=== PATIENT | female | born 1930 | race Caucasian/White ===

== ENCOUNTER 2019-04-22 05:46 | Inpatient (IN) ==
[2019-04-22 06:58] LABS: Basophils # (Auto) 0 K/mcL (0.0-0.3); Basophils % (Auto) 0.4 % (0.0-2.0); Eosinophils # (Auto) 0.7 K/mcL (0.0-0.7); Eosinophils % (Auto) 11.2 % (0.0-7.0); Hematocrit 29.2 % (36.0-48.0); Hemoglobin 9.4 g/dL (12.0-15.0); Lymphocytes # (Auto) 0.6 K/mcL (1.5-4.8); Lymphocytes % (Auto) 10.5 % (15.5-49.0); Mean Cell Volume 96.2 fL (80.0-100.0); Mean Corpuscular HGB Conc 32.2 g/dL (31.0-36.0); Mean Platelet Volume 7.4 fL (7.4-10.4); Monocytes # (Auto) 0.5 K/mcL (0.1-0.9); Monocytes % (Auto) 8.9 % (1.0-12.0); Platelet Count 182 K/mcL (140-440); RBC 3.03 M/mcL (4.00-5.20); Red Cell Distribution Width 13.2 % (11.5-14.5); WBC 6.2 K/mcL (4.5-11.0)
--- NOTE | 2019-04-22 07:20 | Emergency Department Note ---
SOB HPI - General Chief Complaint: Shortness of Breath/Dyspnea Stated Complaint: shortness of breathe Time Seen by Provider: 04/22/19 07:14 Mode of arrival: EMS Limitations: altered mental status, physical limitation - History of Present Illness This patient lives at [facility] and is normally on 2 L of oxygen but over the last day or so her needs her oxygen have increased with decreasing his O2 saturations. Hard to get any other symptoms from her. - Related Data Home Medications Medication Instructions Recorded Confirmed flaxseed 1,000 mg capsule See Dose Instructions .ROUTE 07/09/15 04/22/19 .MEDSUPPLY coenzyme Q10 100 mg capsule 200 mg PO QDAY cap 08/13/15 04/22/19 cranberry extract 500 mg capsule 500 mg PO QAM cap 08/13/15 04/22/19 ascorbic acid (vitamin C) 500 mg 1,000 mg PO BID tab 05/25/16 04/22/19 tablet vitamin E mixed 400 unit capsule 400 unit PO BID cap 09/28/17 04/22/19 fexofenadine 180 mg tablet 180 mg PO QDAY 06/08/18 04/22/19 cinnamon bark 500 mg capsule See Dose Instructions .ROUTE 01/03/19 04/22/19 .MEDSUPPLY cyanocobalamin (vit B-12) 1,000 1,000 mcg PO QDAY tab 01/03/19 04/22/19 mcg tablet gabapentin 300 mg capsule 300 mg PO TID 01/03/19 04/22/19 mineral oil enema 118 ml [place] ONCE PRN 01/03/19 04/22/19 venlafaxine ER 75 mg 37.5 mg PO QDAY 01/03/19 04/22/19 capsule,extended release 24 hr furosemide 20 mg tablet 40 mg PO BID tab 02/20/19 04/22/19 levothyroxine 88 mcg tablet 88 mcg PO QDAY 02/20/19 04/22/19 ipratropium-albuterol 0.5 mg-3 3 ml INHALATION QID 03/06/19 04/22/19 mg(2.5 mg base)/3 mL nebulization soln Vitamin D3 1,000 unit PO DAILY 04/22/19 04/22/19 Previous Rx's Medication Instructions Recorded budesonide 0.5 mg/2 mL suspension 2 ml INHALATION BID #2 ml 03/26/19 for nebulization Allergies Allergy/AdvReac Type Severity Reaction Status Date / Time carbamazepine [From Tegretol] Allergy Intermediate Vomiting Verified 03/06/19 10:39 meperidine [From Demerol] Allergy Mild Hives Verified 03/06/19 10:39 nitrofurantoin Allergy Mild Rash Verified 03/06/19 10:39 [From Macrobid] Penicillins Allergy Mild Hives Verified 03/06/19 10:39 pregabalin [From Lyrica] Allergy Dizziness Verified 03/06/19 10:39 Sulfa (Sulfonamide AdvReac Severe Lightheadedness Verified 03/06/19 10:39 Antibiotics) and dizziness acetaminophen AdvReac Unknown Unknown Verified 03/06/19 10:39 codeine AdvReac Unknown Unknown Verified 03/06/19 10:39 duloxetine AdvReac Unknown Unknown Verified 03/06/19 10:39 tramadol AdvReac Unknown unknown Verified 03/06/19 10:39 Review of Systems All systems ED: reviewed and negative except as stated. 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) CKD (chronic kidney disease) stage 4, GFR 15-29 ml/min (Chronic) History of progressive weakness (Chronic) Urinary tract infection (Acute 05/29/14) Trigeminal neuralgia (Acute) Spinal stenosis of lumbar region (Acute 11/03/14) Hypertonicity of bladder (Acute 05/29/14) Osteoarthritis (Acute) Microscopic hematuria (Acute 06/12/14) Acquired hypothyroidism (Acute) Dizziness (Acute) Deep vein thrombosis (Acute 08/26/14) Adverse effect of smooth muscle relaxant (Acute 06/12/14) Candidiasis (Chronic) Cardiomyopathy (Chronic) Chronic obstructive pulmonary disease (Chronic) Dysphagia, oropharyngeal phase (Chronic) Encephalopathy (Chronic) Gastro-esophageal reflux disease without esophagitis (Chronic) Heart failure (Chronic) Morbid (severe) obesity due to excess calories (Chronic) Diabetes mellitus type 2, controlled (Inactive) Past Surgical History (Last Reviewed 03/06/19 @ 12:[address] MD) History of shoulder surgery (Acute) History of hip surgery (Acute) History of coronary artery bypass graft (Acute) Presence of aortocoronary bypass graft (Chronic) Family History (Last Reviewed 03/06/19 @ 12:[address] MD) Mother Aortic aneurysm, Onset Age: 70 Father Diabetes mellitus Unknown Cardiac disease - Social History smoking status: Never smoker Physical Exam Limitations: altered mental status, physical limitation General appearance: in no apparent distress Head: atraumatic Chest: Present: normal inspection Respiratory: Present: rales/crackles Cardiovascular: Present: regular rate, normal rhythm, normal heart sounds Abdominal: Present: soft. Absent: distention, tenderness Extremities: Present: pedal edema, pretibial edema Neurological: Present: alert Psychiatric: Present: normal affect Skin: Present: warm, dry Course Vital Signs Pulse Rate 72 04/22/19 05:47 Respiratory Rate 22 04/22/19 05:47 Blood Pressure 126/75 04/22/19 05:47 Pulse Oximetry (%) 94 04/22/19 05:47 Pulse Rate 109 H 04/22/19 08:01 Respiratory Rate 18 04/22/19 08:01 Blood Pressure 113/52 04/22/19 08:01 Pulse Oximetry (%) 84 L 04/22/19 08:01 Shortness of Breath/Dyspnea - [facility] Narrative Medical decision making narrative: This patient has mild heart failure would be admitted to the hospital. - Lab Data Lab results reviewed: Yes I reviewed the patient's lab results. Result diagrams: 04/22/19 06:25 04/22/19 06:25 Lab Results 04/22/19 04/22/19 04/22/19 Range/Units 06:25 06:25 06:25 WBC 6.2 (4.5-11.0) K/mcL RBC 3.03 L (4.00-5.20) M/mcL Hgb 9.4 L (12.0-15.0) g/dL Hct 29.2 L (36.0-48.0) % MCV 96.2 (80.0-100.0) fL MCH 30.9 (26.0-34.0) pg MCHC 32.2 (31.0-36.0) g/dL RDW 13.2 (11.5-14.5) % Plt Count 182 (140-440) K/mcL MPV 7.4 (7.4-10.4) fL Gran % 69.0 (38.0-78.0) % Lymph % (Auto) 10.5 L (15.5-49.0) % Elbert % (Auto) 8.9 (1.0-12.0) % Eos % (Auto) 11.2 H (0.0-7.0) % Baso % (Auto) 0.4 (0.0-2.0) % Gran # 4.3 (1.8-8.0) K/mcL Lymph # (Auto) 0.6 L (1.5-4.8) K/mcL Elbert # (Auto) 0.5 (0.1-0.9) K/mcL Eos # (Auto) 0.7 (0.0-0.7) K/mcL Baso # (Auto) 0 (0.0-0.3) K/mcL Sodium 142 (133-145) mmol/L Potassium 4.9 (3.3-5.1) mmol/L Chloride 97 (96-108) mmol/L Carbon Dioxide 36 H (22-30) mmol/L Anion Gap 9.0 (8-16) BUN 30 H (8-23) mg/dl Creatinine 2.1 H (0.6-1.1) mg/dl GFR Calculation 20 Glucose 93 (70-105) mg/dL Calcium 9.2 (8.6-10.4) mg/dl Total Bilirubin 0.3 (0.0-1.0) mg/dL AST 17 (0-37) U/l ALT 9 (0-40) U/l Alkaline Phosphatase 82 (39-117) U/L Troponin T < 0.01 (0-0.03) ng/ml NT-Pro-B Natriuret Pep 1843.0 H (0-450) pg/ml Total Protein 7.0 (5.9-8.4) gm/dL Albumin 4.0 (3.2-5.2) gm/dL Globulin 3.0 (2.2-3.7) gm/dL Albumin/Globulin Ratio 1.3 (1.0-2.3) - Radiology Data Radiology results reviewed: Yes I reviewed the patient's radiology results. Disposition Pt seen by POLICE DISPATCHER/PA only: No Clinical Impression: Congestive heart failure Disposition: Xfer As Inpt ([facility]) Condition: Fair Referrals: Rikki Maki MD [Primary Care Provider] - Time of Disposition: 08:48
[2019-04-22 07:27] LABS: ALT/SGPT 9 U/l (0-40); AST/SGOT 17 U/l (0-37); Albumin/Globulin Ratio 1.3 (1.0-2.3); Alkaline Phosphatase 82 U/L (39-117); Bilirubin,Total 0.3 mg/dL (0.0-1.0); Blood Urea Nitrogen 30 mg/dl (8-23); Calcium 9.2 mg/dl (8.6-10.4); Carbon Dioxide 36 mmol/L (22-30); Chloride 97 mmol/L (96-108); Glomerular Filtration Rate 20; Glucose 93 mg/dL (70-105); Potassium 4.9 mmol/L (3.3-5.1); Sodium 142 mmol/L (133-145)
--- NOTE | 2019-04-22 07:54 | XRay Report ---
HISTORY: Hypoxia FINDINGS: Lung volumes are relatively small due to poor inspiration. There are streaky infiltrates in both lungs. The pulmonary vessels may be engorged. The heart is mildly enlarged but magnified by suboptimal inspiration and portable technique. There are multiple sternal wires present and there are clips in the left chest. Patient has a right shoulder prosthesis. Comparison with the prior exam from 10/17/18 shows the infiltrates in both lungs are new. IMPRESSION: Streaky infiltrates in both lungs which could be due to congestive heart failure or an inflammatory reaction. Interpreted and Authenticated by: Corby Quiñonez 04/22/19
[2019-04-22] MEDS ORDERED: FUROSEMIDE 40 MG/4 ML VIAL IV ONE (07:57)
--- NOTE | 2019-04-22 08:52 | Internal Med History&Physical ---
Medical - H&P: [facility] Patient information: Note initiated : 04/22/19 at 8:51 am Service Date, if different from initiated Date: [] Patient: Marilin Calvillo a 89 y/o F admitted on for shortness of breathe. Chief Complaint: [] Chief complaint: shortness of breath History of present illness: Ms. Calvillo is a 89 year old F with history of chronic kidney disease/CHF who was brought in to [facility] ER from [facility] with increasing weakness, shortness of breath and increased oxygen requirement over the last few days. Patient has been gradually gaining weight with dependent edema. Patient also become more lethargic fatigue unable to perform activities of daily living. She has been doing remarkably dyspnea at rest. Initial workup in the ER was consistent with acute exacerbation of heart failure with pulmonary edema on chest imaging. Patient was profoundly hypoxic . hospitalist service was consulted. Patient is requiring 8 L to maintain sats over 90% and was started promptly on BiPAP At the time of evaluation patient is responding to commands but very fatigued and lethargic. She denies recent changes in medication, NSAID intake, high salt diet. She denies diarrhea dysuria, joint pain, rash, headache, photophobia or chest pain. 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 (Chronic) Iron deficiency anemia, unspecified (Chronic) Anemia in stage 4 chronic kidney disease (Chronic) CKD (chronic kidney disease) stage 4, GFR 15-29 ml/min (Chronic) History of progressive weakness (Chronic) Urinary tract infection (Acute 05/29/14) Trigeminal neuralgia (Acute) Spinal stenosis of lumbar region (Acute 11/03/14) Hypertonicity of bladder (Acute 05/29/14) Osteoarthritis (Acute) 08/2013-Right Shoulder Microscopic hematuria (Acute 06/12/14) Acquired hypothyroidism (Acute) Dizziness (Acute) Deep vein thrombosis (Acute 08/26/14) Adverse effect of smooth muscle relaxant (Acute 06/12/14) Oxybutynin Candidiasis (Chronic) Cardiomyopathy (Chronic) Chronic obstructive pulmonary disease (Chronic) Dysphagia, oropharyngeal phase (Chronic) Encephalopathy (Chronic) Gastro-esophageal reflux disease without esophagitis (Chronic) Heart failure (Chronic) Morbid (severe) obesity due to excess calories (Chronic) Diabetes mellitus type 2, controlled (Inactive) Surgical History History of shoulder surgery (Acute) 11/2013; Right History of hip surgery (Acute) 08/12/14-Left Hip; Right hip was previously done History of coronary artery bypass graft (Acute) Triple Bypass Presence of aortocoronary bypass graft (Chronic) Family History Mother Aortic aneurysm, Onset Age: 70 Father Diabetes mellitus Unknown Cardiac disease Social History lives independently: No long-term: Yes smoking status: Never smoker alcohol intake frequency: does not drink Medical - H&P: Meds Home Medications Medication Instructions Recorded Confirmed Type flaxseed 1,000 mg capsule See Dose Instructions .ROUTE 07/09/15 04/22/19 History .MEDSUPPLY coenzyme Q10 100 mg capsule 200 mg PO QDAY cap 08/13/15 04/22/19 History cranberry extract 500 mg capsule 500 mg PO QAM cap 08/13/15 04/22/19 History ascorbic acid (vitamin C) 500 mg 1,000 mg PO BID tab 05/25/16 04/22/19 History tablet vitamin E mixed 400 unit capsule 400 unit PO BID cap 09/28/17 04/22/19 History fexofenadine 180 mg tablet 180 mg PO QDAY 06/08/18 04/22/19 History cinnamon bark 500 mg capsule See Dose Instructions .ROUTE 01/03/19 04/22/19 History .MEDSUPPLY cyanocobalamin (vit B-12) 1,000 1,000 mcg PO QDAY tab 01/03/19 04/22/19 History mcg tablet gabapentin 300 mg capsule 300 mg PO TID 01/03/19 04/22/19 History mineral oil enema 118 ml [place] ONCE PRN 01/03/19 04/22/19 History venlafaxine ER 75 mg 37.5 mg PO QDAY 01/03/19 04/22/19 History capsule,extended release 24 hr furosemide 20 mg tablet 40 mg PO BID tab 02/20/19 04/22/19 History levothyroxine 88 mcg tablet 88 mcg PO QDAY 02/20/19 04/22/19 History ipratropium-albuterol 0.5 mg-3 3 ml INHALATION QID 03/06/19 04/22/19 History mg(2.5 mg base)/3 mL nebulization soln budesonide 0.5 mg/2 mL suspension 2 ml INHALATION BID #2 ml 03/26/19 04/22/19 Rx for nebulization Vitamin D3 1,000 unit PO DAILY 04/22/19 04/22/19 History Allergies Allergy/AdvReac Type Severity Reaction Status Date / Time meperidine [From Demerol] Allergy Mild Hives Verified 03/06/19 10:39 nitrofurantoin Allergy Mild Rash Verified 03/06/19 10:39 [From Macrobid] Penicillins Allergy Mild Hives Verified 03/06/19 10:39 carbamazepine [From Tegretol] AdvReac Mild Vomiting Verified 04/22/19 09:49 pregabalin [From Lyrica] AdvReac Mild Dizziness Verified 04/22/19 09:49 Sulfa (Sulfonamide AdvReac Mild Lightheadedness Verified 04/22/19 09:49 Antibiotics) and dizziness acetaminophen AdvReac Unknown Unknown Verified 04/22/19 10:53 codeine AdvReac Unknown Unknown Verified 04/22/19 10:53 duloxetine AdvReac Unknown Unknown Verified 04/22/19 10:53 tramadol AdvReac Unknown unknown Verified 04/22/19 10:53 Medical - H&P: Exam - Constitutional Vitals: Pulse Resp BP Pulse Ox 109 H 18 113/52 84 L 04/22/19 08:01 04/22/19 08:01 04/22/19 08:01 04/22/19 08:01 General appearance: moderate distress, morbidly obese Exam: Patient responded commands but fatigued and lethargic and very labored and di stressed Head normocephalic Oral cavity dry No ear discharge Negative lymphadenopathy S1 and S2 regular rhythm, grade 2 systolic murmur Diminished breath sounds bases with late inspiratory crackles, very labored breathing on 8 L oxygen transition to BiPAP Abdomen soft nontender Lower extremity no cyanosis clubbing or joint swelling Skin no suspicious lesion Psych fatigued and lethargic but cooperative Neuro nonfocal Medical - H&P: Reslt - Labs CBC & Chem 7: 04/23/19 03:45 04/23/19 03:45 Labs: Short CBC 04/22/19 Range/Units 06:25 WBC 6.2 (4.5-11.0) K/mcL Hgb 9.4 L (12.0-15.0) g/dL Hct 29.2 L (36.0-48.0) % Plt Count 182 (140-440) K/mcL BMP 04/22/19 06:25 Sodium 142 Potassium 4.9 Chloride 97 Carbon Dioxide 36 H BUN 30 H Creatinine 2.1 H Glucose 93 Calcium 9.2 Cardiac Enzymes 04/22/19 Range/Units 06:25 Troponin T < 0.01 (0-0.03) ng/ml Liver Function 04/22/19 Range/Units 06:25 Total Bilirubin 0.3 (0.0-1.0) mg/dL AST 17 (0-37) U/l ALT 9 (0-40) U/l Alkaline Phosphatase 82 (39-117) U/L Albumin 4.0 (3.2-5.2) gm/dL Medical - H&P: A/P (1) Heart failure, diastolic, with acute decompensation Current visit: Yes Status: Acute * Acute decompensated heart failure-underlying history of aortic stenosis. Last echo 55% EF. Start aggressive diuresis * Acute hypoxic respiratory failure, on noninvasive ventilation. High risk mortality. Check serial ABGs/interval chest imaging * Anasarca secondary to above-continue diuresis * Complicated UTI- initiate antibiotic coverage. 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 * Neuropathy start home dose gabapentin * hypothyroidism continue home dose thyroxine * Anxiety disorder continue Effexor * DNR * Prophylaxis heparin Plan * Inpatient ICU admission light of decompensated heart failure and pulmonary edema, patient critically ill in light of [place] score over 16 signifying high risk mortality * Start Aggressive diuresis * Nephrology consult * Serial ABGs/internal limiting * Antibiotic coverage * Noninvasive ventilation * Pre-existing medical condition management as above * Repeat echocardiogram * PT OT/nutrition support
[2019-04-22] MEDS ORDERED: MAGNESIUM HYDROXIDE 30 ML ORAL.SUSP PO PRN (09:47)
[2019-04-22] MEDS ORDERED: POTASSIUM CHLORIDE 20 MEQ PACKET PO PRN (09:47)
[2019-04-22] MEDS ORDERED: ONDANSETRON 4 MG/2 ML VIAL IV PRN (09:47)
[2019-04-22] MEDS ORDERED: MAGNESIUM SULFATE 2 GM/50 ML BAG IV PRN (09:47)
[2019-04-22] MEDS ORDERED: ACETAMINOPHEN 325 MG TABLET PO PRN (09:47)
[2019-04-22] MEDS ORDERED: ACETAMINOPHEN 1,000 MG/100 ML BOTTLE IV PRN (09:47)
[2019-04-22] MEDS ORDERED: MINERAL OIL 1 DOSE ENEMA PR PRN (09:47)
[2019-04-22 09:51] LABS: Appearance,Urine HAZY; Bacteria,Urine 0 /hpf (0); Bilirubin,Urine NEG (NEG); Color,Urine YELLOW; Culture Indicated,Urine YES; Glucose,Urine (UA) NEGATIVE (NEG); Ketones,Urine NEG (NEG); Leukocyte Esterase,Urine 500 /uL (NEG); Mucus,Urine FEW /hpf (0); Nitrate,Urine NEG (NEG); Protein,Urine 100 mg/dL (NEG); Specific Gravity,Urine 1.012 (1.000-1.035); Urine Amorphous Crystals FEW /hpf (0); Urine Blood >=1.0 mg/dL (<0.03); Urine Hyaline Cast 40 /lpf (0-2); Urine RBC 119 /hpf (0-1); Urine Squamous Epithelial Cell 0 /hpf (0-4); Urine WBC 144 /hpf (0-4); Urobilinogen,Urine NEG (NEG)
[2019-04-22] MEDS ORDERED: PIPERACILLIN SODIUM/TAZOBACTAM 2.25 GM in DEXTROSE 5% IN WATER 50 ML IV SCH (10:00)
[2019-04-22] MEDS ORDERED: FUROSEMIDE 100 MG/10 ML VIAL IV ONE (10:23)
[2019-04-22] MEDS: DOCUSATE SODIUM 100 MG CAPSULE PO SCH ×2 (10:25→21:57)
[2019-04-22] MEDS: LEVOTHYROXINE 88 MCG TABLET PO SCH (10:25)
[2019-04-22] MEDS: VENLAFAXINE 37.5 MG TAB.ER.24H PO SCH (10:25)
[2019-04-22] MEDS: GABAPENTIN 300 MG CAPSULE PO SCH ×3 (10:25→21:58)
[2019-04-22] MEDS: FEXOFENADINE 180 MG TABLET PO SCH (10:25)
[2019-04-22] MEDS: BUDESONIDE 0.5 MG/2 ML AMPUL.NEB NEB SCH ×2 (10:33→19:04)
[2019-04-22] MEDS: IPRATROPIUM/ALBUTEROL 3 ML AMPUL.NEB NEB SCH ×4 (10:33→22:46)
[2019-04-22] MEDS: HEPARIN 5,000 UNIT/ML VIAL SQ SCH ×2 (10:39→21:57)
[2019-04-22] MEDS ORDERED: LEVOFLOXACIN 750 MG/150 ML BAG IV SCH (11:00)
[2019-04-22] MEDS ORDERED: METOLAZONE 2.5 MG TABLET PO ONE (12:08)
[2019-04-22] MEDS ORDERED: LORazepam 2 MG/ML VIAL IV ONE (12:09)
--- NOTE | 2019-04-22 12:21 | Nephrology Consult Note ---
History of Present Illness - Reason for Consult Patient information: Note initiated : 04/22/19 at 12:18 pm Patient: Marilin Calvillo 89 y/o F admitted on 04/22/19 for shortness of breathe. Consult date: 04/22/19 acute renal failure, chronic renal failure Requesting physician: Chan Denise - Chief Complaint Increasing oxygen need - History of Present Illness Marilin Calvillo is an 89-year-old female with coronary artery disease s/p CABG, chronic diastolic heart failure (Echo on 01/02/18: LVEF 55-60%, no segmental wall motion abnormalities, Grade III diastolic dysfunction, moderate to severe aortic stenosis), hypertension, chronic kidney disease stage 4 (last seen by Dr. Way on 03/06/19) and dementia sent to ED from [facility] for increasing oxygen need on 04/22/19 and admitted. 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 (Chronic) Iron deficiency anemia, unspecified (Chronic) Anemia in stage 4 chronic kidney disease (Chronic) CKD (chronic kidney disease) stage 4, GFR 15-29 ml/min (Chronic) History of progressive weakness (Chronic) Urinary tract infection (Acute 05/29/14) Trigeminal neuralgia (Acute) Spinal stenosis of lumbar region (Acute 11/03/14) Hypertonicity of bladder (Acute 05/29/14) Osteoarthritis (Acute) Microscopic hematuria (Acute 06/12/14) Acquired hypothyroidism (Acute) Dizziness (Acute) Deep vein thrombosis (Acute 08/26/14) Adverse effect of smooth muscle relaxant (Acute 06/12/14) Candidiasis (Chronic) Cardiomyopathy (Chronic) Chronic obstructive pulmonary disease (Chronic) Dysphagia, oropharyngeal phase (Chronic) Encephalopathy (Chronic) Gastro-esophageal reflux disease without esophagitis (Chronic) Heart failure (Chronic) Morbid (severe) obesity due to excess calories (Chronic) Diabetes mellitus type 2, controlled (Inactive) Past surgical history: Past Surgical History (Last Reviewed 03/06/19 @ 12:[address] MD) History of shoulder surgery (Acute) History of hip surgery (Acute) History of coronary artery bypass graft (Acute) Presence of aortocoronary bypass graft (Chronic) Past family history: Family History (Last Reviewed 03/06/19 @ 12:[address] MD) Mother Aortic aneurysm, Onset Age: 70 Father Diabetes mellitus Unknown Cardiac disease Past social history: Social History (Last Updated 03/06/19 @ 12:[address] MD) No Social History Section defined Medications and Allergies Home Medications Medication Instructions Recorded Confirmed Type flaxseed 1,000 mg capsule See Dose Instructions .ROUTE 07/09/15 04/22/19 History .MEDSUPPLY coenzyme Q10 100 mg capsule 200 mg PO QDAY cap 08/13/15 04/22/19 History cranberry extract 500 mg capsule 500 mg PO QAM cap 08/13/15 04/22/19 History ascorbic acid (vitamin C) 500 mg 1,000 mg PO BID tab 05/25/16 04/22/19 History tablet vitamin E mixed 400 unit capsule 400 unit PO BID cap 09/28/17 04/22/19 History fexofenadine 180 mg tablet 180 mg PO QDAY 06/08/18 04/22/19 History cinnamon bark 500 mg capsule See Dose Instructions .ROUTE 01/03/19 04/22/19 History .MEDSUPPLY cyanocobalamin (vit B-12) 1,000 1,000 mcg PO QDAY tab 01/03/19 04/22/19 History mcg tablet gabapentin 300 mg capsule 300 mg PO TID 01/03/19 04/22/19 History mineral oil enema 118 ml [place] ONCE PRN 01/03/19 04/22/19 History venlafaxine ER 75 mg 37.5 mg PO QDAY 01/03/19 04/22/19 History capsule,extended release 24 hr furosemide 20 mg tablet 40 mg PO BID tab 02/20/19 04/22/19 History levothyroxine 88 mcg tablet 88 mcg PO QDAY 02/20/19 04/22/19 History ipratropium-albuterol 0.5 mg-3 3 ml INHALATION QID 03/06/19 04/22/19 History mg(2.5 mg base)/3 mL nebulization soln budesonide 0.5 mg/2 mL suspension 2 ml INHALATION BID #2 ml 03/26/19 04/22/19 Rx for nebulization Vitamin D3 1,000 unit PO DAILY 04/22/19 04/22/19 History Allergies Allergy/AdvReac Type Severity Reaction Status Date / Time meperidine [From Demerol] Allergy Mild Hives Verified 03/06/19 10:39 nitrofurantoin Allergy Mild Rash Verified 03/06/19 10:39 [From Macrobid] Penicillins Allergy Mild Hives Verified 03/06/19 10:39 carbamazepine [From Tegretol] AdvReac Mild Vomiting Verified 04/22/19 09:49 pregabalin [From Lyrica] AdvReac Mild Dizziness Verified 04/22/19 09:49 Sulfa (Sulfonamide AdvReac Mild Lightheadedness Verified 04/22/19 09:49 Antibiotics) and dizziness acetaminophen AdvReac Unknown Unknown Verified 04/22/19 10:53 codeine AdvReac Unknown Unknown Verified 04/22/19 10:53 duloxetine AdvReac Unknown Unknown Verified 04/22/19 10:53 tramadol AdvReac Unknown unknown Verified 04/22/19 10:53 Exam - Vital Signs Vital signs: Temp Pulse Resp BP Pulse Ox 98.0 F 72 16 112/72 96 04/22/19 11:39 04/22/19 11:39 04/22/19 11:39 04/22/19 11:39 04/22/19 11:39 - General Appearance General appearance: chronically ill, fatigue EENT: mucous membranes dry Neck: supple Respiratory: course breath sounds Cardiology: edema Gastrointestinal: no tenderness Integumentary: warm and dry Neurologic: confused Musculoskeletal: no deformities Psychiatric: cooperative Results - Lab Results 04/22/19 06:25 04/22/19 06:25 Most recent lab results Calcium 9.2 mg/dl (8.6-10.4) 04/22/19 06:25 Assessment and Plan (1) Acute on chronic renal failure Marilin Calvillo is an 89-year-old female with chronic diastolic heart failure (Echo on 01/02/18: LVEF 55-60%, no segmental wall motion abnormalities, Grade III diastolic dysfunction, moderate to severe aortic stenosis), hypertension, chronic kidney disease stage 4 (last seen by Dr. Way on 03/06/19) sent to ED from [facility] for increasing oxygen need on 04/22/19 and admitted. Acute kidney injury on chronic kidney disease stage 4 with worsening hypoxia, present on arrival. Work up: Urinalysis on 04/22/19: Yellow, hazy, pH 5.0, SG 1.012, protein 100, occult blood >1.0, leukocyte esterase 500, urine WBC 144. Renal US on 06/28/16: Mild atrophy with elevated parenchymal echotexture compatible medical renal disease. The small echogenic lesion in the left kidney, seen on previous study, is no longer apparent and should be considered clinically insignificant. Progress: Urine output: 125 ml reported since arrival. Serum creatinine increased from baseline 1.7-1.9 to 2.1. Fluid overload. Plan: No urgent acute hemodialysis need. Her family indicated limited intervention plan without chronic hemodialysis to Dr. Way which will be discussed. Gentle diuresis considering aortic stenosis and renal failure. Avoid NSAIDs, nephrotoxic medications and IV contrast. Monitor BMP and urine output. Status: Acute Priority: Medium Qualifiers: Acute renal failure type: unspecified Chronic kidney disease stage: stage 4 (severe) Qualified Code(s): N17.9 - Acute kidney failure, unspecified; N18.4 - Chronic kidney disease, stage 4 (severe)
[2019-04-22] MEDS: 0.9 % SODIUM CHLORIDE 10 ML SYRINGE IV SCH ×2 (14:42→21:59)
[2019-04-22] MEDS: FUROSEMIDE 40 MG/4 ML VIAL IV SCH ×2 (15:08→21:57)
[2019-04-22] MEDS: SENNOSIDES/DOCUSATE SODIUM 1 TAB TABLET PO SCH (21:58)
[2019-04-23] MEDS: IPRATROPIUM/ALBUTEROL 3 ML AMPUL.NEB NEB SCH ×6 (04:34→23:04)
[2019-04-23] MEDS: 0.9 % SODIUM CHLORIDE 10 ML SYRINGE IV SCH ×3 (06:27→22:02)
[2019-04-23] MEDS: FUROSEMIDE 40 MG/4 ML VIAL IV SCH ×3 (06:27→22:01)
[2019-04-23 06:47] LABS: Hematocrit 27.8 % (36.0-48.0); Hemoglobin 8.8 g/dL (12.0-15.0); Mean Cell Volume 96.3 fL (80.0-100.0); Mean Corpuscular HGB Conc 31.8 g/dL (31.0-36.0); Mean Platelet Volume 7.5 fL (7.4-10.4); Platelet Count 156 K/mcL (140-440); RBC 2.89 M/mcL (4.00-5.20); Red Cell Distribution Width 13.4 % (11.5-14.5); WBC 6.3 K/mcL (4.5-11.0)
[2019-04-23 07:12] LABS: ALT/SGPT 8 U/l (0-40); AST/SGOT 17 U/l (0-37); Albumin 3.6 gm/dL (3.2-5.2); Albumin/Globulin Ratio 1.3 (1.0-2.3); Alkaline Phosphatase 73 U/L (39-117); Bilirubin,Direct < 0.2 mg/dL (0.0-0.3); Bilirubin,Total 0.4 mg/dL (0.0-1.0); Blood Urea Nitrogen 30 mg/dl (8-23); Carbon Dioxide 36 mmol/L (22-30); Chloride 97 mmol/L (96-108); Globulin 2.8 gm/dL (2.2-3.7); Glomerular Filtration Rate 20; Glucose 72 mg/dL (70-105); Lactate Dehydrogenase 316 U/L (94-250); Magnesium 2.1 mg/dL (1.6-2.5); Phosphorous 4.2 mg/dL (2.7-4.5); Potassium 4.1 mmol/L (3.3-5.1); Sodium 145 mmol/L (133-145); Triglycerides 106 mg/dl (<150); Uric Acid 12.2 mg/dL (2.5-8.0)
[2019-04-23] MEDS: BUDESONIDE 0.5 MG/2 ML AMPUL.NEB NEB SCH ×2 (07:17→18:33)
--- NOTE | 2019-04-23 07:17 | Nephrology Progress Note ---
Subjective Patient information: Note initiated : 04/23/19 at 7:15 am Patient: Marilin Calvillo 89 y/o F admitted on 04/22/19 for shortness of breathe. Chief Complaint: Shortness of breath. Pertinent ROS: Limited. Confused at times. Edema. Shortness of breath. Objective - Vital Signs Vital signs: Vital Signs Temp Pulse Pulse Resp BP BP Pulse Ox 04/23/19 04:02 98 F 126/66 98 04/23/19 03:02 79 134/64 88 L 04/23/19 02:02 77 121/54 95 04/23/19 01:02 77 149/70 94 04/23/19 00:02 100.0 F H 75 132/55 93 04/22/19 23:03 74 140/65 100 04/22/19 22:55 77 18 04/22/19 22:02 73 128/108 96 04/22/19 21:02 75 134/60 95 04/22/19 20:02 99.0 F 75 131/53 99 04/22/19 20:00 94 04/22/19 19:16 77 102/66 100 04/22/19 19:00 78 20 04/22/19 16:06 97.6 F 73 20 134/50 100 04/22/19 14:51 69 18 04/22/19 13:10 72 20 97 04/22/19 11:43 70 112/72 100 04/22/19 11:39 98.0 F 72 16 112/72 96 04/22/19 10:37 74 16 04/22/19 10:05 71 14 100 04/22/19 10:02 125/113 97 04/22/19 09:59 75 118/71 97 04/22/19 09:55 97.6 F 74 20 118/71 100 04/22/19 09:47 83 L 04/22/19 09:41 97.6 F 74 20 118/71 92 04/22/19 09:31 72 128/115 93 04/22/19 09:29 98.3 F 04/22/19 09:17 67 119/51 91 04/22/19 09:01 66 130/56 94 04/22/19 08:46 74 21 127/80 92 04/22/19 08:33 72 123/54 91 04/22/19 08:01 109 H 18 113/52 84 L 04/22/19 07:46 66 134/66 93 04/22/19 07:31 65 141/74 93 04/22/19 07:16 67 24 H 128/67 94 Intake and Output 04/22/19 04/23/19 04/23/19 21:59 05:59 13:59 Output Total 502 501 Balance -502 -501 Output: Urine Catheter Amount 500 500 # of times incontinent of urine 2 1 Other: Urine Appearance Clear Clear Uretheral (Ortega) Clear Urine Color Pale Pale Uretheral (Ortega) Pale # Voids 1 Weight 220 lb 14.4 oz Intake & Output: Intake & Output 04/22/19 04/23/19 04/23/19 21:59 05:59 13:59 Output Total 502 501 Balance -502 -501 Weight 220 lb 14.4 oz Output: Urine Catheter Amount 500 500 # of times incontinent of urine 2 1 Other: Urine Appearance Clear Clear Uretheral (Ortega) Clear Urine Color Pale Pale Uretheral (Ortega) Pale # Voids 1 - General Appearance General appearance: chronically ill, fatigue EENT: mucous membranes dry Neck: supple Respiratory: course breath sounds Cardiology: edema Gastrointestinal: no tenderness Integumentary: warm and dry Neurologic: no focal deficit Musculoskeletal: no deformities Psychiatric: mood/affect appropriate, cooperative - Lab 04/23/19 03:45 04/23/19 03:45 Most recent lab results Calcium 9.0 mg/dl (8.6-10.4) 04/23/19 03:45 Phosphorus 4.2 mg/dL (2.7-4.5) 04/23/19 03:45 Magnesium 2.1 mg/dL (1.6-2.5) 04/23/19 03:45 Assessment and Plan (1) Acute on chronic renal failure Marilin Calvillo is an 89-year-old female with chronic diastolic heart failure (Echo on 01/02/18: LVEF 55-60%, no segmental wall motion abnormalities, Grade III di astolic dysfunction, moderate to severe aortic stenosis), hypertension, chronic kidney disease stage 4 (last seen by Dr. Way on 03/06/19) sent to ED from [facility] for increasing oxygen need on 04/22/19 and admitted. Acute kidney injury on chronic kidney disease stage 4 with worsening hypoxia, present on arrival. Work up: Urinalysis on 04/22/19: Yellow, hazy, pH 5.0, SG 1.012, protein 100, occult blood >1.0, leukocyte esterase 500, urine WBC 144. Renal US on 06/28/16: Mild atrophy with elevated parenchymal echotexture compatible medical renal disease. The small echogenic lesion in the left kidney, seen on previous study, is no longer apparent and should be considered clinically insignificant. Progress: Urine output: 1225 ml reported in the past 24 hours. Serum creatinine 2.1, did not change in the past 24 hours. Baseline serum creatinine 1.7-1.9. Metabolic alkalosis. Fluid overload. Plan: No urgent acute hemodialysis need. Her family indicated limited intervention plan without chronic hemodialysis to Dr. Way which will be discussed. Gentle diuresis considering aortic stenosis and renal failure. Avoid NSAIDs, nephrotoxic medications and IV contrast. Monitor BMP and urine output. Status: Acute Priority: Medium Qualifiers: Acute renal failure type: unspecified Chronic kidney disease stage: stage 4 (severe) Qualified Code(s): N17.9 - Acute kidney failure, unspecified; N18.4 - Chronic kidney disease, stage 4 (severe)
[2019-04-23 07:24] LABS: Gamma Glutamyl Transpeptidase 182 U/L (5-36)
[2019-04-23 07:47] LABS: Eosinophils % (Manual) 3 % (0-7); Lymphocytes % 5 % (15-49); Monocytes % (Manual) 6 % (1-12); Platelet Estimate NORMAL (NORMAL); RBC Morphology NORMAL (NORMAL); Segmented Neutrophils % 86 % (38-78)
[2019-04-23] MEDS: DOCUSATE SODIUM 100 MG CAPSULE PO SCH ×3 (10:24→22:02)
[2019-04-23] MEDS: VENLAFAXINE 37.5 MG TAB.ER.24H PO SCH (10:24)
[2019-04-23] MEDS: HEPARIN 5,000 UNIT/ML VIAL SQ SCH ×2 (10:24→22:02)
[2019-04-23] MEDS: FEXOFENADINE 180 MG TABLET PO SCH ×2 (10:24→11:03)
[2019-04-23] MEDS: GABAPENTIN 300 MG CAPSULE PO SCH ×4 (10:24→22:01)
[2019-04-23] MEDS: LEVOTHYROXINE 88 MCG TABLET PO SCH ×2 (10:24→11:03)
--- NOTE | 2019-04-23 12:42 | Internal Med Progress Note ---
Medical - PN: Subj Patient information: Note initiated : 04/23/19 at 12:39 pm Service Date, if different from initiated Date: [] Patient: Marilin Calvillo 89 y/o F admitted on 04/22/19 for shortness of breathe. Chief Complaint: [] Interval history: Ms. Calvillo is a 89 year old F with history of chronic kidney disease/CHF who was brought in to [facility] ER from [facility] with increasing weakness, shortness of breath and increased oxygen requirement over the last few days. Patient has been gradually gaining weight with dependent edema. Patient also become more lethargic fatigue unable to perform activities of daily living. She has been doing remarkably dyspnea at rest. Initial workup in the ER was consistent with acute exacerbation of heart failure with pulmonary edema on chest imaging. Patient was profoundly hypoxic . hospitalist service was consulted. Patient is requiring 8 L to maintain sats over 90% and was started promptly on BiPAP At the time of evaluation patient is responding to commands but very fatigued and lethargic. She denies recent changes in medication, NSAID intake, high salt diet. She denies diarrhea dysuria, joint pain, rash, headache, photophobia or chest pain. 04/23-continuing to aggressively diuresis. Persistent anasarca but improved since previous day. Tolerated noninvasive ventilation overnight. Currently off noninvasive ventilation on 3 L oxygen. Creatinine stable. Nephrology on board. Echocardiogram pending. Improved prognosis since previous day. Cont inue antibiotic coverage for Pseudomonas UTI. Await sensitivities. - Constitutional Vitals: Vital Signs Temp Pulse Resp BP Pulse Ox 98.8 F 77 20 122/52 93 04/23/19 12:28 04/23/19 11:17 04/23/19 11:17 04/23/19 12:28 04/23/19 12:28 Period Temp Pulse Resp BP Sys/Palafox Pulse Ox Last 24 Hr 97.6 F-100.0 F 69-79 18-20 100-149/50-108 88-100 Intake and Output 04/22/19 04/23/19 04/23/19 21:59 05:59 13:59 Output Total 502 501 1 Balance -502 -501 -1 Weight 220 lb 14.4 oz Intake & Output: Intake & Output 04/22/19 04/23/19 04/23/19 21:59 05:59 13:59 Output Total 502 501 1 Balance -502 -501 -1 Weight 220 lb 14.4 oz Output: Urine Catheter Amount 500 500 # of times incontinent of urine 2 1 1 Other: Urine Appearance Clear Clear Uretheral (Ortega) Clear Clear Urine Color Pale Pale Uretheral (Ortega) Pale Pale # Voids 1 General appearance: no acute distress Exam: Doing better. More alert and lucid. Responding to verbal commands. Lymphedema improving Minimally labored breathing Intermittent tachycardia Foleys draining clear urine Medical - PN: Obj Da - Labs CBC & Chem 7: 04/23/19 03:45 04/23/19 03:45 Labs: Abnormal Lab Results 04/23/19 04/23/19 04/22/19 03:45 03:45 10:20 RBC 2.89 L Hgb 8.8 L Hct 27.8 L Lymph % (Auto) Eos % (Auto) Lymph # (Auto) Seg Neutrophils % 86 H Lymphocytes % 5 L ESR Carbon Dioxide 36 H BUN 30 H Creatinine 2.1 H Uric Acid 12.2 H GGT 182 H Lactate Dehydrogenase 316 H C-Reactive Protein 1.5 H NT-Pro-B Natriuret Pep Urine Protein Urine Occult Blood Ur Leukocyte Esterase Urine RBC Urine WBC Amorphous Crystals Hyaline Casts 04/22/19 04/22/19 04/22/19 10:11 08:22 06:25 RBC Hgb Hct Lymph % (Auto) Eos % (Auto) Lymph # (Auto) Seg Neutrophils % Lymphocytes % ESR 57 H Carbon Dioxide 36 H BUN 30 H Creatinine 2.1 H Uric Acid GGT Lactate Dehydrogenase C-Reactive Protein NT-Pro-B Natriuret Pep 1843.0 H Urine Protein 100 A Urine Occult Blood >=1.0 A Ur Leukocyte Esterase 500 A Urine RBC 119 H Urine WBC 144 H Amorphous Crystals Few A Hyaline Casts 40 H 04/22/19 06:25 RBC 3.03 L Hgb 9.4 L Hct 29.2 L Lymph % (Auto) 10.5 L Eos % (Auto) 11.2 H Lymph # (Auto) 0.6 L Seg Neutrophils % Lymphocytes % ESR Carbon Dioxide BUN Creatinine Uric Acid GGT Lactate Dehydrogenase C-Reactive Protein NT-Pro-B Natriuret Pep Urine Protein Urine Occult Blood Ur Leukocyte Esterase Urine RBC Urine WBC Amorphous Crystals Hyaline Casts Meds: Medications Acetaminophen (Tylenol) 650 mg PO Q4-6HP PRN PRN Reason: PAIN/FEVER > 101 Albuterol/Ipratropium (Duoneb) 3 ml NEB Q4HRT [facility] Last Admin: 04/23/19 11:08 Dose: 3 ml Documented by: Budesonide (Pulmicort) 0.5 mg NEB Q12 [facility] Last Admin: 04/23/19 07:17 Dose: 0.5 mg Documented by: Docusate Sodium (Colace) 100 mg PO BID [facility] Last Admin: 04/23/19 11:03 Dose: Not Given Documented by: Fexofenadine HCl (Kallie) 180 mg PO QDAY [facility] Last Admin: 04/23/19 11:03 Dose: Not Given Documented by: Furosemide (Lasix) 40 mg IV Q8 [facility] Last Admin: 04/23/19 06:27 Dose: 40 mg Documented by: Gabapentin (Neurontin) 300 mg PO TID [facility] Last Admin: 04/23/19 11:03 Dose: Not Given Documented by: Heparin Sodium (Porcine) (Heparin) 5,000 unit SQ Q12 [facility] Last Admin: 04/23/19 10:24 Dose: 5,000 unit Documented by: Magnesium Sulfate (Magnesium Sulfate) 2 gm in 50 mls @ 50 mls/hr IV UD PRN PRN Reason: MG = or < 1.7 Acetaminophen (Ofirmev) 1,000 mg in 100 mls @ 200 mls/hr IV Q6HP PRN PRN Reason: PAIN/FEVER > 101 Ceftriaxone Sodium 2 gm/ (Dextrose) 50 mls @ 100 mls/hr IV Q24H [facility]; Protocol Levothyroxine Sodium (Synthroid) 88 mcg PO QAMAC [facility] Last Admin: 04/23/19 11:03 Dose: Not Given Documented by: Magnesium Hydroxide (Milk Of Magnesia) 30 ml PO HSP PRN PRN Reason: Constipation Mineral Oil (Mineral Oil Enema) 1 dose HI DAILYP PRN PRN Reason: Constipation Ondansetron HCl (Zofran) 4 mg IV Q4-6HP PRN PRN Reason: Nausea And Vomiting Potassium Chloride (Klor-Con) 40 meq PO DAILYP PRN PRN Reason: K+ < 3.5 Senna/Docusate Sodium (Senna Plus Tablet) 2 tab PO HS [facility] Last Admin: 04/22/19 21:58 Dose: 2 tab Documented by: Sodium Chloride (Saline Flush) 10 ml IV Q8 [facility] Last Admin: 04/23/19 06:27 Dose: 10 ml Documented by: Venlafaxine HCl (Effexor Xr) 37.5 mg PO DAILY [facility] Last Admin: 04/23/19 10:24 Dose: 37.5 mg Documented by: Medical - PN: A/P - Time Spent With Patient Total time spent is greater than 50% in coordination of care (as documented) at patient's floor/unit and/or counseling patient: 25 - 35 minutes (1) Heart failure, diastolic, with acute decompensation Status: Acute Assessment and plan: * Acute decompensated heart failure-underlying history of aortic stenosis. Last echo 55% EF. Clinically improving with aggressive diuresis. Await echo results * Acute hypoxic respiratory failure, platelet improved on noninvasive ventilati on. Currently on 3 L oxygen * Anasarca secondary to above -improving with diuresis * Complicated Pseudomonas UTI-start cefepime. 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 * Neuropathy continue home dose gabapentin * hypothyroidism continue home dose thyroxine * Anxiety disorder continue Effexor * DNR * Prophylaxis heparin Plan * Continue Aggressive diuresis * deescalate abx based on cultures * wean Noninvasive ventilation * Pre-existing medical condition management as above * Await echocardiogram * PT OT/nutrition support * Discharge planning per case management Current Visit: Yes Medical - PN: Qual - VTE Deep Vein Thrombosis/Pulmonary Embolism Present on Admission: No
[2019-04-23] MEDS ORDERED: cefTRIAXone 2 GM in DEXTROSE 5% IN WATER 50 ML IV SCH (12:45)
[2019-04-23] MEDS: CEFEPIME 1 GM VIAL IV SCH (13:31)
[2019-04-23] MEDS ORDERED: VANCOMYCIN PER PHARMACY IV ONE (20:59)
[2019-04-23] MEDS ORDERED: VANCOMYCIN 1,000 MG in 0.9 % SODIUM CHLORIDE 250 ML IV ONE (21:30)
[2019-04-23] MEDS: SENNOSIDES/DOCUSATE SODIUM 1 TAB TABLET PO SCH (22:02)
[2019-04-24] MEDS: IPRATROPIUM/ALBUTEROL 3 ML AMPUL.NEB NEB SCH ×4 (02:45→19:22)
[2019-04-24 06:08] LABS: Hemoglobin 9.3 g/dL (12.0-15.0); Mean Cell Volume 95.8 fL (80.0-100.0); Mean Corpuscular HGB Conc 31.9 g/dL (31.0-36.0); Mean Platelet Volume 7.3 fL (7.4-10.4); Platelet Count 178 K/mcL (140-440); RBC 3.03 M/mcL (4.00-5.20); Red Cell Distribution Width 13.2 % (11.5-14.5); WBC 7.4 K/mcL (4.5-11.0)
[2019-04-24] MEDS: FUROSEMIDE 40 MG/4 ML VIAL IV SCH ×3 (06:18→22:15)
[2019-04-24] MEDS: 0.9 % SODIUM CHLORIDE 10 ML SYRINGE IV SCH ×3 (06:18→22:16)
[2019-04-24 06:43] LABS: ALT/SGPT 7 U/l (0-40); AST/SGOT 17 U/l (0-37); Albumin 3.5 gm/dL (3.2-5.2); Albumin/Globulin Ratio 1.3 (1.0-2.3); Alkaline Phosphatase 72 U/L (39-117); Bilirubin,Direct < 0.2 mg/dL (0.0-0.3); Bilirubin,Total 0.4 mg/dL (0.0-1.0); Blood Urea Nitrogen 28 mg/dl (8-23); Calcium 9.4 mg/dl (8.6-10.4); Carbon Dioxide 40 mmol/L (22-30); Chloride 94 mmol/L (96-108); Gamma Glutamyl Transpeptidase 15 U/L (5-36); Globulin 2.8 gm/dL (2.2-3.7); Glomerular Filtration Rate 19; Glucose 81 mg/dL (70-105); Lactate Dehydrogenase 312 U/L (94-250); Magnesium 1.9 mg/dL (1.6-2.5); Phosphorous 3.9 mg/dL (2.7-4.5); Potassium 3.1 mmol/L (3.3-5.1); Sodium 145 mmol/L (133-145); Triglycerides 104 mg/dl (<150); Uric Acid 12.6 mg/dL (2.5-8.0)
--- NOTE | 2019-04-24 06:46 | Nephrology Progress Note ---
Subjective Patient information: Note initiated : 04/24/19 at 6:44 am Patient: Marilin Calvillo 89 y/o F admitted on 04/22/19 for shortness of breathe. Chief Complaint: Shortness of breath. Pertinent ROS: Limited. Shortness of breath. Edema. Objective - Vital Signs Vital signs: Vital Signs Temp Pulse Resp BP Pulse Ox 04/24/19 03:59 99.4 F H 16 101/58 92 04/24/19 00:02 99.8 F H 24 H 120/59 96 04/23/19 23:47 93 04/23/19 23:00 97 H 18 04/23/19 20:02 100.1 F H 26 H 126/70 100 04/23/19 20:00 94 04/23/19 18:45 94 H 18 04/23/19 16:09 99.5 F H 20 128/52 100 04/23/19 15:34 83 18 04/23/19 12:28 98.8 F 122/52 93 04/23/19 11:17 77 20 04/23/19 10:01 134/85 04/23/19 09:02 127/55 96 04/23/19 08:06 96 04/23/19 08:03 98.1 F 121/76 100 04/23/19 08:00 92 04/23/19 07:29 77 20 04/23/19 07:28 98 04/23/19 07:02 100/59 95 Intake and Output 04/23/19 04/24/19 04/24/19 21:59 05:59 13:59 Intake Total 200 250 Output Total 1084 567 Balance -884 -317 Intake: IV 200 250 Vancomycin 1,000 mg In Sodium 250 Chloride 0.9% 250 ml @ 250 mls/ hr IV ONCE ONE Rx#:[id number] Output: Urine Catheter Amount 1083 567 # of times incontinent of urine 1 Other: Urine Appearance Clear Sediment Uretheral (Ortega) Clear Urine Color Bright Yellow Bright Yellow Uretheral (Ortega) Pale Urine Odor Strong Weight 215 lb Intake & Output: Intake & Output 04/23/19 04/24/19 04/24/19 21:59 05:59 13:59 Intake Total 200 250 Output Total 1084 567 Balance -884 -317 Weight 215 lb Intake: IV 200 250 Vancomycin 1,000 mg In Sodium 250 Chloride 0.9% 250 ml @ 250 mls/ hr IV ONCE ONE Rx#:[id number] Output: Urine Catheter Amount 1083 567 # of times incontinent of urine 1 Other: Urine Appearance Clear Sediment Uretheral (Ortega) Clear Urine Color Bright Yellow Bright Yellow Uretheral (Ortega) Pale Urine Odor Strong - General Appearance General appearance: chronically ill, fatigue EENT: mucous membranes dry Neck: supple Respiratory: course breath sounds Cardiology: edema Gastrointestinal: no tenderness Integumentary: no rash Neurologic: confused Musculoskeletal: no deformities Psychiatric: cooperative - Lab 04/24/19 04:05 04/24/19 04:05 Most recent lab results Calcium 9.4 mg/dl (8.6-10.4) 04/24/19 04:05 Phosphorus 3.9 mg/dL (2.7-4.5) 04/24/19 04:05 Magnesium 1.9 mg/dL (1.6-2.5) 04/24/19 04:05 Assessment and Plan (1) Acute on chronic renal failure Marilin Calvillo is an 89-year-old female with chronic diastolic heart failure (Echo on 01/02/18: LVEF 55-60%, no segmental wall motion abnormalities, Grade III diastolic dysfunction, moderate to severe aortic stenosis), hypertension, chroni c kidney disease stage 4 (last seen by Dr. Way on 03/06/19) sent to ED from [facility] for increasing oxygen need on 04/22/19 and admitted. Acute kidney injury on chronic kidney disease stage 4 with worsening hypoxia, present on arrival. Work up: Urinalysis on 04/22/19: Yellow, hazy, pH 5.0, SG 1.012, protein 100, occult blood >1.0, leukocyte esterase 500, urine WBC 144. Renal US on 06/28/16: Mild atrophy with elevated parenchymal echotexture compatible medical renal disease. The small echogenic lesion in the left kidney, seen on previous study, is no longer apparent and should be considered clinically insignificant. Progress: Urine output: 1650 ml reported in the past 24 hours. Serum creatinine increased from 2.1 to 2.2 in the past 24 hours. Baseline serum creatinine 1.7-1.9. Metabolic alkalosis and hypokalemia associated with diuresis. Plan: No acute hemodialysis need. Gentle diuresis considering aortic stenosis and renal failure. Avoid NSAIDs, nephrotoxic medications and IV contrast. Monitor BMP and urine output. Status: Acute Priority: Medium Qualifiers: Acute renal failure type: unspecified Chronic kidney disease stage: stage 4 (severe) Qualified Code(s): N17.9 - Acute kidney failure, unspecified; N18.4 - Chronic kidney disease, stage 4 (severe)
[2019-04-24] MEDS: BUDESONIDE 0.5 MG/2 ML AMPUL.NEB NEB SCH ×2 (07:37→19:22)
[2019-04-24 08:18] LABS: Basophils % (Manual) 1 % (0-2); Eosinophils % (Manual) 7 % (0-7); Lymphocytes % 10 % (15-49); Monocytes % (Manual) 4 % (1-12); Platelet Estimate NORMAL (NORMAL); RBC Morphology NORMAL (NORMAL); Segmented Neutrophils % 78 % (38-78)
[2019-04-24] MEDS: FEXOFENADINE 180 MG TABLET PO SCH (08:27)
[2019-04-24] MEDS: LEVOTHYROXINE 88 MCG TABLET PO SCH (08:28)
[2019-04-24] MEDS: GABAPENTIN 300 MG CAPSULE PO SCH (08:28)
[2019-04-24] MEDS: HEPARIN 5,000 UNIT/ML VIAL SQ SCH ×2 (08:28→22:15)
[2019-04-24] MEDS: DOCUSATE SODIUM 100 MG CAPSULE PO SCH ×2 (08:29→22:16)
--- NOTE | 2019-04-24 08:47 | XRay Report ---
HISTORY: Follow-up pulmonary infiltrates and persistent shortness of breath FINDINGS: There are streaky infiltrates, predominantly involving the lower lobes. Although the lung volumes are relatively small, there is a better inspiration on today's exam than there was two days ago. Left diaphragm is asymmetrically elevated. The heart is mildly enlarged. The pulmonary vessels are obscured by the superimposed infiltrates. No pleural effusion is detected. Patient has sternal wires and a right shoulder prosthesis. IMPRESSION: persistent bilateral infiltrates and stable cardiomegaly. Improved inspiration, especially on the right side Interpreted and Authenticated by: Corby Quiñonez 04/24/19
[2019-04-24] MEDS ORDERED: VANCOMYCIN PER PHARMACY IV SCH (09:30)
--- NOTE | 2019-04-24 10:49 | Internal Med Progress Note ---
Medical - PN: Subj Patient information: Note initiated : 04/24/19 at 10:47 am Service Date, if different from initiated Date: [] Patient: Marilin Calvillo 89 y/o F admitted on 04/22/19 for shortness of breathe. Chief Complaint: [] Interval history: Ms. Calvillo is a 89 year old F with history of chronic kidney disease/CHF who was brought in to [facility] ER from [facility] with increasing weakness, shortness of breath and increased oxygen requirement over the last few days. Patient has been gradually gaining weight with dependent edema. Patient also become more lethargic fatigue unable to perform activities of daily living. She has been doing remarkably dyspnea at rest. Initial workup in the ER was consistent with acute exacerbation of heart failure with pulmonary edema on chest imaging. Patient was profoundly hypoxic . hospitalist service was consulted. Patient is requiring 8 L to maintain sats over 90% and was started promptly on BiPAP At the time of evaluation patient is responding to commands but very fatigued and lethargic. She denies recent changes in medication, NSAID intake, high salt diet. She denies diarrhea dysuria, joint pain, rash, headache, photophobia or chest pain. 04/23-continuing to aggressively diuresis. Persistent anasarca but improved since previous day. Tolerated noninvasive ventilation overnight. Currently off noninvasive ventilation on 3 L oxygen. Creatinine stable. Nephrology on board. Echocardiogram pending. Improved prognosis since previous day. Cont inue antibiotic coverage for Pseudomonas UTI. Await sensitivities. 04/24-patient doing well. On 3 L oxygen. Diuresing well. Weight down to 215 pounds from 231. Improving anasarca. Potassium 3.1 on replacement. Renal function at baseline. Nephrology on board. On antibiotic coverage for multi drug resistant Pseudomonas UTI/GPC bacteremia. Surveillance cultures pending. Continue vancomycin. No overnight events including telemetry events or concerns per staff. Ongoing wound care. - Constitutional Vitals: Vital Signs Temp Pulse Resp BP Pulse Ox 98.8 F 97 H 18 133/66 93 04/24/19 08:01 04/23/19 23:00 04/24/19 08:01 04/24/19 08:01 04/24/19 08:01 Period Temp Pulse Resp BP Sys/Palafox Pulse Ox Last 24 Hr 98.8 F-100.1 F 77-97 16-26 101-133/52-70 92-100 Intake and Output 04/23/19 04/24/19 04/24/19 21:59 05:59 13:59 Intake Total 200 250 Output Total 1084 567 1 Balance -884 -317 -1 Weight 215 lb Intake & Output: Intake & Output 04/23/19 04/24/19 04/24/19 21:59 05:59 13:59 Intake Total 200 250 Output Total 1084 567 1 Balance -884 -317 -1 Weight 215 lb Intake: IV 200 250 Vancomycin 1,000 mg In Sodium 250 Chloride 0.9% 250 ml @ 250 mls/ hr IV ONCE ONE Rx#:[id number] Output: Urine Catheter Amount 1083 567 # of times incontinent of urine 1 1 Other: Urine Appearance Clear Sediment Uretheral (Ortega) Clear Urine Color Bright Yellow Bright Yellow Uretheral (Ortega) Pale Urine Odor Strong General appearance: morbidly obese, no acute distress Exam: Much improved lymphedema Off noninvasive ventilation Diuresing well Nonlabored breathing on 3 L oxygen No anxiety No telemetry events Medical - PN: Obj Da - Labs CBC & Chem 7: 04/24/19 04:05 04/24/19 04:05 Labs: Abnormal Lab Results 04/24/19 04/24/19 04/23/19 04:05 04:05 03:45 RBC 3.03 L Hgb 9.3 L Hct 29.0 L MPV 7.3 L Lymph % (Auto) Eos % (Auto) Lymph # (Auto) Seg Neutrophils % Lymphocytes % 10 L ESR Potassium 3.1 L Chloride 94 L Carbon Dioxide 40 H 36 H BUN 28 H 30 H Creatinine 2.2 H 2.1 H Uric Acid 12.6 H 12.2 H GGT 182 H Lactate Dehydrogenase 312 H 316 H C-Reactive Protein NT-Pro-B Natriuret Pep Urine Protein Urine Occult Blood Ur Leukocyte Esterase Urine RBC Urine WBC Amorphous Crystals Hyaline Casts 04/23/19 04/22/19 04/22/19 03:45 10:20 10:11 RBC 2.89 L Hgb 8.8 L Hct 27.8 L MPV Lymph % (Auto) Eos % (Auto) Lymph # (Auto) Seg Neutrophils % 86 H Lymphocytes % 5 L ESR 57 H Potassium Chloride Carbon Dioxide BUN Creatinine Uric Acid GGT Lactate Dehydrogenase C-Reactive Protein 1.5 H NT-Pro-B Natriuret Pep Urine Protein Urine Occult Blood Ur Leukocyte Esterase Urine RBC Urine WBC Amorphous Crystals Hyaline Casts 04/22/19 04/22/19 04/22/19 08:22 06:25 06:25 RBC 3.03 L Hgb 9.4 L Hct 29.2 L MPV Lymph % (Auto) 10.5 L Eos % (Auto) 11.2 H Lymph # (Auto) 0.6 L Seg Neutrophils % Lymphocytes % ESR Potassium Chloride Carbon Dioxide 36 H BUN 30 H Creatinine 2.1 H Uric Acid GGT Lactate Dehydrogenase C-Reactive Protein NT-Pro-B Natriuret Pep 1843.0 H Urine Protein 100 A Urine Occult Blood >=1.0 A Ur Leukocyte Esterase 500 A Urine RBC 119 H Urine WBC 144 H Amorphous Crystals Few A Hyaline Casts 40 H Meds: Medications Acetaminophen (Tylenol) 650 mg PO Q4-6HP PRN PRN Reason: PAIN/FEVER > 101 Albuterol/Ipratropium (Duoneb) 3 ml NEB Q4HRT [facility] Last Admin: 04/24/19 07:37 Dose: Not Given Documented by: Budesonide (Pulmicort) 0.5 mg NEB Q12 [facility] Last Admin: 04/24/19 07:37 Dose: Not Given Documented by: Cefepime HCl (Maxipime) 1 gm IV DAILY [facility]; Protocol Last Admin: 04/23/19 13:31 Dose: 1 gm Documented by: Docusate Sodium (Colace) 100 mg PO BID [facility] Last Admin: 04/24/19 08:29 Dose: 100 mg Documented by: Fexofenadine HCl (Kallie) 180 mg PO QDAY [facility] Last Admin: 04/24/19 08:27 Dose: 180 mg Documented by: Furosemide (Lasix) 40 mg IV Q8 [facility] Last Admin: 04/24/19 06:18 Dose: 40 mg Documented by: Gabapentin (Neurontin) 300 mg PO DAILY [facility] Heparin Sodium (Porcine) (Heparin) 5,000 unit SQ Q12 [facility] Last Admin: 04/24/19 08:28 Dose: 5,000 unit Documented by: Magnesium Sulfate (Magnesium Sulfate) 2 gm in 50 mls @ 50 mls/hr IV UD PRN PRN Reason: MG = or < 1.7 Acetaminophen (Ofirmev) 1,000 mg in 100 mls @ 200 mls/hr IV Q6HP PRN PRN Reason: PAIN/FEVER > 101 Levothyroxine Sodium (Synthroid) 88 mcg PO QAMAC [facility] Last Admin: 04/24/19 08:28 Dose: 88 mcg Documented by: Magnesium Hydroxide (Milk Of Magnesia) 30 ml PO HSP PRN PRN Reason: Constipation Mineral Oil (Mineral Oil Enema) 1 dose [place] DAILYP PRN PRN Reason: Constipation Ondansetron HCl (Zofran) 4 mg IV Q4-6HP PRN PRN Reason: Nausea And Vomiting Potassium Chloride (Kdur) 40 meq PO DAILYP PRN PRN Reason: K+ < 3.5 Senna/Docusate Sodium (Senna Plus Tablet) 2 tab PO HS [facility] Last Admin: 04/23/19 22:02 Dose: 2 tab Documented by: Sodium Chloride (Saline Flush) 10 ml IV Q8 [facility] Last Admin: 04/24/19 06:18 Dose: 10 ml Documented by: Vancomycin HCl (Vancomycin Per Pharmacy) 1 order IV UD [facility]; Protocol Venlafaxine HCl (Effexor Xr) 37.5 mg PO DAILY [facility] Last Admin: 04/23/19 10:24 Dose: 37.5 mg Documented by: Medical - PN: A/P - Time Spent With Patient Total time spent is greater than 50% in coordination of care (as documented) at patient's floor/unit and/or counseling patient: 25 - 35 minutes (1) Heart failure, diastolic, with acute decompensation Status: Acute Assessment and plan: * Acute hypoxic respiratory failure, clinically improved. Off noninvasive ventilation. Now on 3 L oxygen * Acute decompensated heart failure-underlying history of aortic stenosis. Last echo 55% EF. Clinically improving with aggressive diuresis. Repeat echo 67% EF, mild AI. * Gram-positive cocci bacteremia-await surveillance cultures. Continue vancomycin. * Complicated Pseudomonas UTI-continue cefepime. * Anasarca secondary to above -improving with diuresis. 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 * Neuropathy continue home dose gabapentin * hypothyroidism continue home dose thyroxine * Anxiety disorder continue Effexor * DNR * Prophylaxis heparin Plan * Continue diuresis * Wean oxygen as tolerated * Continue antibiotic coverage * Pre-existing medical condition management as above * PT OT/nutrition support * Discharge planning per case management Current Visit: Yes Medical - PN: Qual - VTE Deep Vein Thrombosis/Pulmonary Embolism Present on Admission: No
[2019-04-24] MEDS: CEFEPIME 1 GM VIAL IV SCH (11:05)
[2019-04-24] MEDS: POTASSIUM CHLORIDE 10 MEQ TABLET PO PRN (11:06)
[2019-04-24] MEDS: VENLAFAXINE 37.5 MG TAB.ER.24H PO SCH (11:06)
[2019-04-24 11:31] LABS: Vancomycin,Random 12.8 ug/mL
[2019-04-24] MEDS ORDERED: VANCOMYCIN 1,000 MG in 0.9 % SODIUM CHLORIDE 250 ML IV ONE (11:45)
[2019-04-24] MEDS: POTASSIUM CHLORIDE 20 MEQ/15 ML ML PO SCH ×2 (17:10→17:34)
[2019-04-24] MEDS: SENNOSIDES/DOCUSATE SODIUM 1 TAB TABLET PO SCH (22:16)
[2019-04-25] MEDS: IPRATROPIUM/ALBUTEROL 3 ML AMPUL.NEB NEB SCH ×4 (02:10→19:12)
[2019-04-25] MEDS: FUROSEMIDE 40 MG/4 ML VIAL IV SCH ×3 (05:27→22:10)
[2019-04-25] MEDS: 0.9 % SODIUM CHLORIDE 10 ML SYRINGE IV SCH ×4 (05:27→20:42)
[2019-04-25 05:39] LABS: ALT/SGPT 8 U/l (0-40); AST/SGOT 20 U/l (0-37); Albumin 3.3 gm/dL (3.2-5.2); Albumin/Globulin Ratio 1.1 (1.0-2.3); Alkaline Phosphatase 65 U/L (39-117); Bilirubin,Direct < 0.2 mg/dL (0.0-0.3); Bilirubin,Total 0.4 mg/dL (0.0-1.0); Blood Urea Nitrogen 28 mg/dl (8-23); Carbon Dioxide 38 mmol/L (22-30); Chloride 93 mmol/L (96-108); Gamma Glutamyl Transpeptidase 11 U/L (5-36); Glomerular Filtration Rate 22; Glucose 78 mg/dL (70-105); Lactate Dehydrogenase 339 U/L (94-250); Magnesium 1.8 mg/dL (1.6-2.5); Phosphorous 3.4 mg/dL (2.7-4.5); Potassium 3.6 mmol/L (3.3-5.1); Sodium 143 mmol/L (133-145); Triglycerides 114 mg/dl (<150); Uric Acid 12.8 mg/dL (2.5-8.0)
[2019-04-25 05:39] LABS: Vancomycin,Random 21.5 ug/mL
--- NOTE | 2019-04-25 05:48 | Nephrology Progress Note ---
Subjective Patient information: Note initiated : 04/25/19 at 5:46 am Patient: Marilin Calvillo 89 y/o F admitted on 04/22/19 for shortness of breathe. Chief Complaint: Shortness of breath. Pertinent ROS: Limited Weakness Shortness of breath Edema Objective - Vital Signs Vital signs: Vital Signs Temp Pulse Pulse Resp BP Pulse Ox 04/25/19 04:00 96.8 F L 24 H 125/47 99 04/25/19 00:01 107/39 96 04/24/19 23:51 97.7 F 20 112/49 98 04/24/19 23:48 112/49 100 04/24/19 22:03 125/63 100 04/24/19 20:43 22 98 04/24/19 20:01 97.9 F 22 93/60 100 04/24/19 19:36 151/74 100 04/24/19 19:22 97 H 16 100 04/24/19 16:21 98.1 F 16 128/74 95 04/24/19 11:36 98.6 F 20 135/58 90 04/24/19 08:01 98.8 F 18 133/66 93 04/24/19 08:00 74 90 Intake and Output 04/24/19 04/24/19 04/25/19 13:59 21:59 05:59 Intake Total 75 100 Output Total 1 851 501 Balance 74 851 401 Intake: IV 100 Oral 75 Output: Urine Catheter Amount 850 500 # of times incontinent of urine 1 1 1 Other: Meal Lunch Percent of Meal Consumed 25% Urine Appearance Uretheral (Ortega) Clear Urine Color Uretheral (Ortega) Pale Stool Size Large Smear Stool Color Brown Stool Consistency Soft Formed Weight 209 lb 8 oz Patient Weight 04/25/19 05:59 Weight 209 lb 8 oz Intake & Output: Intake & Output 04/24/19 04/24/19 04/25/19 13:59 21:59 05:59 Intake Total 75 100 Output Total 1 851 501 Balance 74 851 -401 Weight 209 lb 8 oz Intake: IV 100 Oral 75 Output: Urine Catheter Amount 850 500 # of times incontinent of urine 1 1 1 Other: Meal Lunch Percent of Meal Consumed 25% Urine Appearance Uretheral (Ortega) Clear Urine Color Uretheral (Ortega) Pale Stool Size Large Smear Stool Color Brown Stool Consistency Soft Formed - General Appearance General appearance: chronically ill, fatigue EENT: mucous membranes moist Neck: supple Respiratory: course breath sounds Cardiology: edema Gastrointestinal: no tenderness Integumentary: warm and dry Neurologic: confused Musculoskeletal: no deformities Psychiatric: mood/affect appropriate, cooperative - Lab 04/25/19 03:45 04/25/19 03:45 Most recent lab results Calcium 9.0 mg/dl (8.6-10.4) 04/25/19 03:45 Phosphorus 3.4 mg/dL (2.7-4.5) 04/25/19 03:45 Magnesium 1.8 mg/dL (1.6-2.5) 04/25/19 03:45 Assessment and Plan (1) Acute on chronic renal failure Marilin Calvillo is an 89-year-old female with chronic diastolic heart failure (Echo on 01/02/18: LVEF 55-60%, no segmental wall motion abnormalities, Grade III diastolic dysfunction, moderate to severe aortic stenosis), hypertension, chronic kidney disease stage 4 (last seen by Dr. Way on 03/06/19) sent to ED from [facility] for increasing oxygen need on 04/22/19 and admitted. Acute kidney injury on chronic kidney disease stage 4 with worsening hypoxia and Pseudomonas aeruginosa cystitis, present on arrival. Work up: Urinalysis on 04/22/19: Yellow, hazy, pH 5.0, SG 1.012, protein 100, occult blood >1.0, leukocyte esterase 500, urine WBC 144. Renal US on 06/28/16: Mild atrophy with elevated parenchymal echotexture compatible medical renal disease. The small echogenic lesion in the left kidney, seen on previous study, is no longer apparent and should be considered clinically insignificant. Progress: Urine output: 1350 ml reported in the past 24 hours. Serum creatinine decreased from 2.2 to 2.0 in the past 24 hours. Baseline serum creatinine 1.7-1.9. Metabolic alkalosis and hypokalemia associated with diuresis. Plan: No acute hemodialysis need. Gentle diuresis considering aortic stenosis and renal failure. Avoid NSAIDs, nephrotoxic medications and IV contrast. Monitor BMP and urine output. Status: Acute Priority: Medium Qualifiers: Acute renal failure type: unspecified Chronic kidney disease stage: stage 4 (severe) Qualified Code(s): N17.9 - Acute kidney failure, unspecified; N18.4 - Chronic kidney disease, stage 4 (severe)
[2019-04-25 06:15] LABS: Hematocrit 29.5 % (36.0-48.0); Hemoglobin 9.4 g/dL (12.0-15.0); Mean Cell Volume 95.7 fL (80.0-100.0); Mean Corpuscular HGB Conc 31.8 g/dL (31.0-36.0); Mean Platelet Volume 7.3 fL (7.4-10.4); Platelet Count 169 K/mcL (140-440); RBC 3.08 M/mcL (4.00-5.20); Red Cell Distribution Width 13.2 % (11.5-14.5); WBC 6.3 K/mcL (4.5-11.0)
[2019-04-25] MEDS: BUDESONIDE 0.5 MG/2 ML AMPUL.NEB NEB SCH ×2 (07:05→19:12)
[2019-04-25 07:46] LABS: Eosinophils % (Manual) 10 % (0-7); Lymphocytes % 9 % (15-49); Monocytes % (Manual) 3 % (1-12); Platelet Estimate NORMAL (NORMAL); RBC Morphology NORMAL (NORMAL); Segmented Neutrophils % 78 % (38-78)
[2019-04-25] MEDS: FEXOFENADINE 180 MG TABLET PO SCH (08:25)
[2019-04-25] MEDS: VENLAFAXINE 37.5 MG TAB.ER.24H PO SCH (08:25)
[2019-04-25] MEDS: CEFEPIME 1 GM VIAL IV SCH (08:25)
[2019-04-25] MEDS: DOCUSATE SODIUM 100 MG CAPSULE PO SCH ×2 (08:26→20:41)
[2019-04-25] MEDS: GABAPENTIN 300 MG CAPSULE PO SCH (08:27)
[2019-04-25] MEDS: HEPARIN 5,000 UNIT/ML VIAL SQ SCH ×2 (08:27→20:41)
[2019-04-25] MEDS: POTASSIUM CHLORIDE 10 MEQ TABLET PO PRN (08:27)
[2019-04-25] MEDS: POTASSIUM CHLORIDE 20 MEQ/15 ML ML PO SCH ×2 (08:27→18:42)
[2019-04-25] MEDS: LEVOTHYROXINE 88 MCG TABLET PO SCH (08:28)
[2019-04-25] MEDS ORDERED: acetaZOLAMIDE SOD 500 MG VIAL IV ONE (08:28)
--- NOTE | 2019-04-25 11:10 | Internal Med Progress Note ---
Medical - PN: Subj Patient information: Note initiated : 04/25/19 at 11:06 am Service Date, if different from initiated Date: [] Patient: Marilin Calvillo 89 y/o F admitted on 04/22/19 for shortness of breathe. Chief Complaint: [] Interval history: Ms. Calvillo is a 89 year old F with history of chronic kidney disease/CHF who was brought in to [facility] ER from [facility] with increasing weakness, shortness of breath and increased oxygen requirement over the last few days. Patient has been gradually gaining weight with dependent edema. Patient also become more lethargic fatigue unable to perform activities of daily living. She has been doing remarkably dyspnea at rest. Initial workup in the ER was consistent with acute exacerbation of heart failure with pulmonary edema on chest imaging. Patient was profoundly hypoxic . hospitalist service was consulted. Patient is requiring 8 L to maintain sats over 90% and was started promptly on BiPAP At the time of evaluation patient is responding to commands but very fatigued and lethargic. She denies recent changes in medication, NSAID intake, high salt diet. She denies diarrhea dysuria, joint pain, rash, headache, photophobia or chest pain. 04/23-continuing to aggressively diuresis. Persistent anasarca but improved since previous day. Tolerated noninvasive ventilation overnight. Currently off noninvasive ventilation on 3 L oxygen. Creatinine stable. Nephrology on board. Echocardiogram pending. Improved prognosis since previous day. Cont inue antibiotic coverage for Pseudomonas UTI. Await sensitivities. 04/24-patient doing well. On 3 L oxygen. Diuresing well. Weight down to 215 pounds from 231. Improving anasarca. Potassium 3.1 on replacement. Renal function at baseline. Nephrology on board. On antibiotic coverage for multi drug resistant Pseudomonas UTI/GPC bacteremia. Surveillance cultures pending. Continue vancomycin. No overnight events including telemetry events or concerns per staff. Ongoing wound care. 04/25-patient doing better. Diuresing well. Over 18 fluid pounds weight reduction. Bicarbonate trending up secondary to contraction alkalosis. Start Diamox. Continue diuresis. Anticipate SNF transfer once clinically better. Continue PT OT. Improved blood pressures. Renal function stable. On anti biotic coverage for Pseudomonas UTI. Surveillance cultures negative so far. No overnight fever or chills or concerns per staff. No major telemetry events. - Constitutional Vitals: Vital Signs Temp Pulse Resp BP Pulse Ox 96.8 F L 97 H 24 H 125/47 99 04/25/19 04:00 04/24/19 19:22 04/25/19 04:00 04/25/19 04:00 04/25/19 04:00 Period Temp Pulse Resp BP Sys/Palafox Pulse Ox Last 24 Hr 96.8 F-98.6 F 97-97 16-24 93-151/39-74 90-100 Intake and Output 04/24/19 04/25/19 04/25/19 21:59 05:59 13:59 Intake Total 350 0 Output Total 851 501 Balance -851 -151 0 Weight 209 lb 8 oz Intake & Output: Intake & Output 04/24/19 04/25/19 04/25/19 21:59 05:59 13:59 Intake Total 350 0 Output Total 851 501 Balance -851 -151 0 Weight 209 lb 8 oz Intake: IV 350 Oral 0 Output: Urine Catheter Amount 850 500 # of times incontinent of urine 1 1 Other: Urine Appearance Uretheral (Ortega) Clear Urine Color Uretheral (Ortega) Pale Stool Size Smear Exam: Improving lymphedema Alert and responding to commands Nonlabored breathing No anxiety Medical - PN: Obj Da - Labs CBC & Chem 7: 04/25/19 03:45 04/25/19 03:45 Labs: Abnormal Lab Results 04/25/19 04/25/19 04/24/19 03:45 03:45 04:05 RBC 3.08 L Hgb 9.4 L Hct 29.5 L MPV 7.3 L Seg Neutrophils % Lymphocytes % 9 L Eosinophils % (Manual) 10 H ESR Potassium 3.1 L Chloride 93 L 94 L Carbon Dioxide 38 H 40 H BUN 28 H 28 H Creatinine 2.0 H 2.2 H Uric Acid 12.8 H 12.6 H GGT Lactate Dehydrogenase 339 H 312 H C-Reactive Protein 04/24/19 04/23/19 04/23/19 04:05 03:45 03:45 RBC 3.03 L 2.89 L Hgb 9.3 L 8.8 L Hct 29.0 L 27.8 L MPV 7.3 L Seg Neutrophils % 86 H Lymphocytes % 10 L 5 L Eosinophils % (Manual) ESR Potassium Chloride Carbon Dioxide 36 H BUN 30 H Creatinine 2.1 H Uric Acid 12.2 H GGT 182 H Lactate Dehydrogenase 316 H C-Reactive Protein 04/22/19 04/22/19 10:20 10:11 RBC Hgb Hct MPV Seg Neutrophils % Lymphocytes % Eosinophils % (Manual) ESR 57 H Potassium Chloride Carbon Dioxide BUN Creatinine Uric Acid GGT Lactate Dehydrogenase C-Reactive Protein 1.5 H Meds: Medications Acetaminophen (Tylenol) 650 mg PO Q4-6HP PRN PRN Reason: PAIN/FEVER > 101 Last Admin: 04/25/19 08:26 Dose: 650 mg Documented by: Acetazolamide Sodium (Diamox) 250 mg IV DAILY [facility] Albuterol/Ipratropium (Duoneb) 3 ml NEB Q6HRT [facility] Last Admin: 04/25/19 07:05 Dose: Not Given Documented by: Budesonide (Pulmicort) 0.5 mg NEB Q12 [facility] Last Admin: 04/25/19 07:05 Dose: Not Given Documented by: Cefepime HCl (Maxipime) 1 gm IV DAILY [facility]; Protocol Last Admin: 04/25/19 08:25 Dose: 1 gm Documented by: Docusate Sodium (Colace) 100 mg PO BID [facility] Last Admin: 04/25/19 08:26 Dose: 100 mg Documented by: Fexofenadine HCl (Kallie) 180 mg PO QDAY [facility] Last Admin: 04/25/19 08:25 Dose: 180 mg Documented by: Furosemide (Lasix) 40 mg IV Q8 [facility] Last Admin: 04/25/19 05:27 Dose: 40 mg Documented by: Gabapentin (Neurontin) 300 mg PO DAILY [facility] Last Admin: 04/25/19 08:27 Dose: 300 mg Documented by: Heparin Sodium (Porcine) (Heparin) 5,000 unit SQ Q12 [facility] Last Admin: 04/25/19 08:27 Dose: 5,000 unit Documented by: Magnesium Sulfate (Magnesium Sulfate) 2 gm in 50 mls @ 50 mls/hr IV UD PRN PRN Reason: MG = or < 1.7 Acetaminophen (Ofirmev) 1,000 mg in 100 mls @ 200 mls/hr IV Q6HP PRN PRN Reason: PAIN/FEVER > 101 Last Infusion: 04/24/19 22:53 Dose: Infused Documented by: Levothyroxine Sodium (Synthroid) 88 mcg PO QAMAC [facility] Last Admin: 04/25/19 08:28 Dose: 88 mcg Documented by: Magnesium Hydroxide (Milk Of Magnesia) 30 ml PO HSP PRN PRN Reason: Constipation Mineral Oil (Mineral Oil Enema) 1 dose [place] DAILYP PRN PRN Reason: Constipation Ondansetron HCl (Zofran) 4 mg IV Q4-6HP PRN PRN Reason: Nausea And Vomiting Potassium Chloride (Kdur) 40 meq PO DAILYP PRN PRN Reason: K+ < 3.5 Last Admin: 04/25/19 08:27 Dose: 40 meq Documented by: Potassium Chloride (Potassium Chloride) 20 meq PO BIDCC [facility] Last Admin: 04/25/19 08:27 Dose: Not Given Documented by: Senna/Docusate Sodium (Senna Plus Tablet) 2 tab PO HS [facility] Last Admin: 04/24/19 22:16 Dose: Not Given Documented by: Sodium Chloride (Saline Flush) 10 ml IV Q8 [facility] Last Admin: 04/25/19 09:57 Dose: 10 ml Documented by: Vancomycin HCl (Vancomycin Per Pharmacy) 1 order IV UD [facility]; Protocol Venlafaxine HCl (Effexor Xr) 37.5 mg PO DAILY [facility] Last Admin: 04/25/19 08:25 Dose: 37.5 mg Documented by: Medical - PN: A/P - Time Spent With Patient Total time spent is greater than 50% in coordination of care (as documented) at patient's floor/unit and/or counseling patient: 25 - 35 minutes (1) Heart failure, diastolic, with acute decompensation Status: Acute Assessment and plan: * Acute hypoxic respiratory failure, clinically improved. Off noninvasive ventilation. on 3 L oxygen * Acute decompensated heart failure with preserved EF - clinically improved with aggressive diuresis. Repeat echo 67% EF, mild AI. * Contraction alkalosis start Diamox * Gram-positive cocci bacteremia-await surveillance cultures. Continue vancomycin. * Complicated Pseudomonas UTI-continue cefepime day 3 x 7. * Anasarca secondary to above -improving with diuresis. * Chronic kidney disease stage III B/IV managed by nephrology. * Neuropathy continue home dose gabapentin * hypothyroidism continue home dose thyroxine * Anxiety disorder continue Effexor * DNR * Prophylaxis heparin Plan * Start Diamox * Wean oxygen as tolerated * Continue antibiotic coverage-vancomycin/cefepime, de-escalate based on sensit ivities * Pre-existing medical condition management as above * PT OT/nutrition support * Anticipate SNF transfer, consider swing bed transition Current Visit: Yes Medical - PN: Qual - VTE Deep Vein Thrombosis/Pulmonary Embolism Present on Admission: No
[2019-04-25] MEDS: SENNOSIDES/DOCUSATE SODIUM 1 TAB TABLET PO SCH (20:41)
[2019-04-26] MEDS: IPRATROPIUM/ALBUTEROL 3 ML AMPUL.NEB NEB SCH ×3 (01:58→19:33)
[2019-04-26] MEDS: FUROSEMIDE 40 MG/4 ML VIAL IV SCH (05:30)
[2019-04-26] MEDS: 0.9 % SODIUM CHLORIDE 10 ML SYRINGE IV SCH ×2 (05:30→15:06)
[2019-04-26 05:49] LABS: ALT/SGPT 7 U/l (0-40); AST/SGOT 18 U/l (0-37); Albumin 3.5 gm/dL (3.2-5.2); Albumin/Globulin Ratio 1.2 (1.0-2.3); Alkaline Phosphatase 72 U/L (39-117); Bilirubin,Direct < 0.2 mg/dL (0.0-0.3); Bilirubin,Total 0.4 mg/dL (0.0-1.0); Blood Urea Nitrogen 30 mg/dl (8-23); Calcium 9.4 mg/dl (8.6-10.4); Carbon Dioxide 42 mmol/L (22-30); Chloride 94 mmol/L (96-108); Gamma Glutamyl Transpeptidase 16 U/L (5-36); Glomerular Filtration Rate 22; Glucose 85 mg/dL (70-105); Lactate Dehydrogenase 299 U/L (94-250); Magnesium 1.8 mg/dL (1.6-2.5); Phosphorous 3.3 mg/dL (2.7-4.5); Potassium 3.5 mmol/L (3.3-5.1); Sodium 147 mmol/L (133-145); Triglycerides 142 mg/dl (<150); Uric Acid 13.3 mg/dL (2.5-8.0)
[2019-04-26 06:07] LABS: Hematocrit 30.2 % (36.0-48.0); Hemoglobin 9.6 g/dL (12.0-15.0); Mean Cell Volume 95.9 fL (80.0-100.0); Mean Corpuscular HGB Conc 31.7 g/dL (31.0-36.0); Mean Platelet Volume 7.4 fL (7.4-10.4); Platelet Count 177 K/mcL (140-440); RBC 3.14 M/mcL (4.00-5.20); Red Cell Distribution Width 13.3 % (11.5-14.5); WBC 8.2 K/mcL (4.5-11.0)
[2019-04-26 06:28] LABS: Band Neutrophils % 1 % (0-10); Eosinophils % (Manual) 13 % (0-7); Lymphocytes % 10 % (15-49); Monocytes % (Manual) 3 % (1-12); Platelet Estimate NORMAL (NORMAL); RBC Morphology NORMAL (NORMAL); Segmented Neutrophils % 73 % (38-78)
[2019-04-26] MEDS: LEVOTHYROXINE 88 MCG TABLET PO SCH (07:35)
[2019-04-26] MEDS: BUDESONIDE 0.5 MG/2 ML AMPUL.NEB NEB SCH ×2 (07:45→19:34)
[2019-04-26] MEDS: DOCUSATE SODIUM 100 MG CAPSULE PO SCH ×2 (08:46→21:11)
[2019-04-26] MEDS: FEXOFENADINE 180 MG TABLET PO SCH (08:46)
[2019-04-26] MEDS: VENLAFAXINE 37.5 MG TAB.ER.24H PO SCH (08:46)
[2019-04-26] MEDS: POTASSIUM CHLORIDE 20 MEQ/15 ML ML PO SCH ×2 (08:46→17:17)
[2019-04-26] MEDS: GABAPENTIN 300 MG CAPSULE PO SCH (08:46)
[2019-04-26] MEDS: CEFEPIME 1 GM VIAL IV SCH (08:47)
[2019-04-26] MEDS: HEPARIN 5,000 UNIT/ML VIAL SQ SCH ×2 (08:47→21:11)
[2019-04-26] MEDS ORDERED: acetaZOLAMIDE SOD 500 MG VIAL IV SCH (09:00)
[2019-04-26] MEDS ORDERED: ACETAMINOPHEN 325 MG TABLET PO PRN (09:26)
[2019-04-26] MEDS ORDERED: MINERAL OIL 1 DOSE ENEMA PR PRN (09:26)
[2019-04-26] MEDS ORDERED: MAGNESIUM SULFATE 2 GM/50 ML BAG IV PRN (09:26)
[2019-04-26] MEDS ORDERED: MAGNESIUM HYDROXIDE 30 ML ORAL.SUSP PO PRN (09:26)
[2019-04-26] MEDS ORDERED: POTASSIUM CHLORIDE 10 MEQ TABLET PO PRN (09:26)
[2019-04-26] MEDS ORDERED: ACETAMINOPHEN 1,000 MG/100 ML BOTTLE IV PRN (09:26)
[2019-04-26] MEDS ORDERED: ONDANSETRON 4 MG/2 ML VIAL IV PRN (09:26)
[2019-04-26] MEDS ORDERED: VANCOMYCIN PER PHARMACY IV SCH (09:26)
--- NOTE | 2019-04-26 10:22 | Internal Med Progress Note ---
Medical - PN: Subj Patient information: Note initiated : 04/26/19 at 10:17 am Service Date, if different from initiated Date: [] Patient: Marilin Calvillo 89 y/o F admitted on 04/22/19 for shortness of breathe. Chief Complaint: [] Interval history: Ms. Calvillo is a 89 year old F with history of chronic kidney disease/CHF who was brought in to [facility] ER from [facility] with increasing weakness, shortness of breath and increased oxygen requirement over the last few days. Patient has been gradually gaining weight with dependent edema. Patient also become more lethargic fatigue unable to perform activities of daily living. She has been doing remarkably dyspnea at rest. Initial workup in the ER was consistent with acute exacerbation of heart failure with pulmonary edema on chest imaging. Patient was profoundly hypoxic . hospitalist service was consulted. Patient is requiring 8 L to maintain sats over 90% and was started promptly on BiPAP At the time of evaluation patient is responding to commands but very fatigued and lethargic. She denies recent changes in medication, NSAID intake, high salt diet. She denies diarrhea dysuria, joint pain, rash, headache, photophobia or chest pain. 04/23-continuing to aggressively diuresis. Persistent anasarca but improved since previous day. Tolerated noninvasive ventilation overnight. Currently off noninvasive ventilation on 3 L oxygen. Creatinine stable. Nephrology on board. Echocardiogram pending. Improved prognosis since previous day. Cont inue antibiotic coverage for Pseudomonas UTI. Await sensitivities. 04/24-patient doing well. On 3 L oxygen. Diuresing well. Weight down to 215 pounds from 231. Improving anasarca. Potassium 3.1 on replacement. Renal function at baseline. Nephrology on board. On antibiotic coverage for multi drug resistant Pseudomonas UTI/GPC bacteremia. Surveillance cultures pending. Continue vancomycin. No overnight events including telemetry events or concerns per staff. Ongoing wound care. 04/25-patient doing better. Diuresing well. Over 18 fluid pounds weight reduction. Bicarbonate trending up secondary to contraction alkalosis. Start Diamox. Continue diuresis. Anticipate SNF transfer once clinically better. Continue PT OT. Improved blood pressures. Renal function stable. On anti biotic coverage for Pseudomonas UTI. Surveillance cultures negative so far. No overnight fever or chills or concerns per staff. No major telemetry events. 04/26- continues to diurese well. No overnight events. Transition to oral diuretics. Case discussed with Dr. Rikki Sanford who will follow her at the SNF. Anticipate discharge in the next 2-3 days with continued rehabilitation. At this time patient is extremely weak and unable to get out of bed to participate in physical therapy. Now on 2 L oxygen which is her baseline. Transfer to medical floor. Continue nutritional support/aggressive therapy. Continue antibiotic coverage for Pseudomonas UTI. Unclear if gram-positive cocci contaminant however surveillance cultures negative. Normal white count. Sodium up trending at 147. Start metolazone - Constitutional Vitals: Vital Signs Temp Pulse Resp BP Pulse Ox 97.9 F 68 24 H 137/59 94 04/26/19 08:00 04/26/19 07:47 04/26/19 08:00 04/26/19 08:21 04/26/19 08:21 Period Temp Pulse Resp BP Sys/Palafox Pulse Ox Last 24 Hr 97.5 F-99.0 F 68-76 16-24 125-146/44-64 92-97 Intake and Output 04/25/19 04/26/19 04/26/19 21:59 05:59 13:59 Intake Total 75 230 240 Output Total 4 4 2 Balance 71 226 238 Weight 201 lb 11.2 oz Intake & Output: Intake & Output 04/25/19 04/26/19 04/26/19 21:59 05:59 13:59 Intake Total 75 230 240 Output Total 4 4 2 Balance 71 226 238 Weight 201 lb 11.2 oz Intake: Oral 75 230 240 Output: # of times incontinent of urine 4 4 2 Other: Meal Dinner Breakfast Percent of Meal Consumed 25% 50% Feeding Ability Total Assistance Urine Appearance Clear Urine Color Bright Yellow Urine Odor Normal Stool Size Smear Stool Color Brown Stool Consistency Soft Medical - PN: Obj Da - Labs CBC & Chem 7: 04/26/19 03:50 04/26/19 03:50 Labs: Abnormal Lab Results 04/26/19 04/26/19 04/25/19 03:50 03:50 03:45 RBC 3.14 L Hgb 9.6 L Hct 30.2 L MPV Lymphocytes % 10 L Eosinophils % (Manual) 13 H Sodium 147 H Potassium Chloride 94 L 93 L Carbon Dioxide 42 H* 38 H BUN 30 H 28 H Creatinine 2.0 H 2.0 H Uric Acid 13.3 H 12.8 H Lactate Dehydrogenase 299 H 339 H 04/25/19 04/24/19 04/24/19 03:45 04:05 04:05 RBC 3.08 L 3.03 L Hgb 9.4 L 9.3 L Hct 29.5 L 29.0 L MPV 7.3 L 7.3 L Lymphocytes % 9 L 10 L Eosinophils % (Manual) 10 H Sodium Potassium 3.1 L Chloride 94 L Carbon Dioxide 40 H BUN 28 H Creatinine 2.2 H Uric Acid 12.6 H Lactate Dehydrogenase 312 H Meds: Medications Acetaminophen (Tylenol) 650 mg PO Q4-6HP PRN PRN Reason: PAIN/FEVER > 101 Acetazolamide Sodium (Diamox) 250 mg IV DAILY [facility] Albuterol/Ipratropium (Duoneb) 3 ml NEB Q6HRT TOMMY Budesonide (Pulmicort) 0.5 mg NEB Q12 TOMMY Cefepime HCl (Maxipime) 1 gm IV DAILY TOMMY; Protocol Docusate Sodium (Colace) 100 mg PO BID TOMMY Fexofenadine HCl (Kallie) 180 mg PO QDAY TOMMY Furosemide (Lasix) 40 mg PO BIDD TOMMY Gabapentin (Neurontin) 300 mg PO DAILY TOM[facility] Heparin Sodium (Porcine) (Heparin) 5,000 unit SQ Q12 [facility]OMMY Magnesium Sulfate (Magnesium Sulfate) 2 gm in 50 mls @ 50 mls/hr IV UD PRN PRN Reason: MG = or < 1.7 Acetaminophen (Ofirmev) 1,000 mg in 100 mls @ 200 mls/hr IV Q6HP PRN PRN Reason: PAIN/FEVER > 101 Levothyroxine Sodium (Synthroid) 88 mcg PO QAMAC [facility] Magnesium Hydroxide (Milk Of Magnesia) 30 ml PO HSP PRN PRN Reason: Constipation Metolazone (Zaroxolyn) 2.5 mg PO Q48 [facility] Mineral Oil (Mineral Oil Enema) 1 dose [place] DAILYP PRN PRN Reason: Constipation Ondansetron HCl (Zofran) 4 mg IV Q4-6HP PRN PRN Reason: Nausea And Vomiting Potassium Chloride (Kdur) 40 meq PO DAILYP PRN PRN Reason: K+ < 3.5 Potassium Chloride (Potassium Chloride) 20 meq PO BIDCC [facility] Senna/Docusate Sodium (Senna Plus Tablet) 2 tab PO HS TOMMY Sodium Chloride (Saline Flush) 10 ml IV Q8 TOMMY Vancomycin HCl (Vancomycin Per Pharmacy) 1 order IV UD TOMMY; Protocol Venlafaxine HCl (Effexor Xr) 37.5 mg PO DAILY [facility] Medical - PN: A/P - Time Spent With Patient Total time spent is greater than 50% in coordination of care (as documented) at patient's floor/unit and/or counseling patient: 25 - 35 minutes (1) Heart failure, diastolic, with acute decompensation Status: Acute Assessment and plan: * Acute decompensated heart failure with preserved EF - clinically improved with aggressive diuresis. Repeat echo 67% EF, mild AI. * Acute hypoxic respiratory failure, clinically improved. Off noninvasive ventilation. Now on baseline 2 L oxygen * Complicated Pseudomonas UTI-continue cefepime day 4 x 7. * Mild hypernatremia secondary to diuresis. Start metolazone * Contraction alkalosis continue Diamox * Gram-positive cocci bacteremia-await surveillance cultures. DC vancomycin if contaminant * Anasarca secondary to above -over 30 pound fluid weight reduction and diuresis. * Chronic kidney disease stage III B/IV managed by nephrology. * Neuropathy continue home dose gabapentin * hypothyroidism continue home dose thyroxine * Anxiety disorder continue Effexor * DNR * Prophylaxis heparin Plan * Switch to oral diuretics, start metolazone * DC vancomycin if blood culture contaminant * Transfer to medical floor * Pre-existing medical condition management as above * PT OT/nutrition support * Anticipate SNF transfer in 72 hours Current Visit: Yes Medical - PN: Qual - VTE Deep Vein Thrombosis/Pulmonary Embolism Present on Admission: No
--- NOTE | 2019-04-26 13:40 | Internal Med Progress Note ---
Medical - PN: Subj Patient information: Note initiated : 04/26/19 at 1:30 pm Service Date, if different from initiated Date: [] Patient: Marilin Calvillo 89 y/o F admitted on 04/22/19 for shortness of breathe. Chief Complaint: [] Interval history: Ms. Calvillo is a 89 year old F with history of chronic kidney disease/CHF who was brought in to [facility] ER from [facility] with increasing weakness, shortness of breath and increased oxygen requirement over the last few days. Patient has been gradually gaining weight with dependent edema. Patient also become more lethargic fatigue unable to perform activities of daily living. She has been doing remarkably dyspnea at rest. Initial workup in the ER was consistent with acute exacerbation of heart failure with pulmonary edema on chest imaging. Patient was profoundly hypoxic . hospitalist service was consulted. Patient is requiring 8 L to maintain sats over 90% and was started promptly on BiPAP At the time of evaluation patient is responding to commands but very fatigued and lethargic. She denies recent changes in medication, NSAID intake, high salt diet. She denies diarrhea dysuria, joint pain, rash, headache, photophobia or chest pain. 04/23-continuing to aggressively diuresis. Persistent anasarca but improved since previous day. Tolerated noninvasive ventilation overnight. Currently off noninvasive ventilation on 3 L oxygen. Creatinine stable. Nephrology on board. Echocardiogram pending. Improved prognosis since previous day. [place] antibiotic coverage for Pseudomonas UTI. Await sensitivities. 04/24-patient doing well. On 3 L oxygen. Diuresing well. Weight down to 215 pounds from 231. Improving anasarca. Potassium 3.1 on replacement. Renal function at baseline. Nephrology on board. On antibiotic coverage for multid rug resistant Pseudomonas UTI/GPC bacteremia. Surveillance cultures pending. Continue vancomycin. No overnight events including telemetry events or concerns per staff. Ongoing wound care. 04/25-patient doing better. Diuresing well. Over 18 fluid pounds weight reduction. Bicarbonate trending up secondary to contraction alkalosis. Start Diamox. Continue diuresis. Anticipate SNF transfer once clinically better. Continue PT OT. Improved blood pressures. Renal function stable. On antib iotic coverage for Pseudomonas UTI. Surveillance cultures negative so far. No overnight fever or chills or concerns per staff. No major telemetry events. 04/26- continues to diurese well. No overnight events. Transition to oral diuretics. Case discussed with Dr. Rikki Sanford who will follow her at the SNF. Anticipate discharge in the next 2-3 days with continued rehabilitation. At this time patient is extremely weak and unable to get out of bed to participate in physical therapy. Now on 2 L oxygen which is her baseline. Transfer to medical floor. Continue nutritional support/aggressive therapy. Continue antibiotic coverage for Pseudomonas UTI. Unclear if gram-positive cocci contaminant however surveillance cultures negative. Normal white count. Sodium up trending at 147. Start metolazone 04/27 - Constitutional Vitals: Vital Signs Temp Pulse Resp BP Pulse Ox 97.5 F 68 20 155/65 96 04/26/19 12:00 04/26/19 13:21 04/26/19 13:21 04/26/19 12:00 04/26/19 12:00 Period Temp Pulse Resp BP Sys/Palafox Pulse Ox Last 24 Hr 97.5 F-99.0 F 68-76 16-24 125-155/44-65 92-97 Intake and Output 04/25/19 04/26/19 04/26/19 21:59 05:59 13:59 Intake Total 75 230 240 Output Total 4 4 3 Balance 71 226 237 Weight 91.49 kg 91.49 kg Patient Weight 04/27/19 05:59 Weight 91.49 kg Intake & Output: Intake & Output 04/25/19 04/26/19 04/26/19 21:59 05:59 13:59 Intake Total 75 230 240 Output Total 4 4 3 Balance 71 226 237 Weight 91.49 kg 91.49 kg Intake: Oral 75 230 240 Output: # of times incontinent of urine 4 4 3 Other: Meal Dinner Breakfast Percent of Meal Consumed 25% 50% Feeding Ability Total Assistance Urine Appearance Clear Urine Color Bright Yellow Urine Odor Normal Normal Stool Size Smear Moderate Stool Color Brown Brown Stool Consistency Soft Soft # Bowel Movements 1 Exam: General: Alert, Awake, No acute Distress Eyes/N/T: EOMI, Head/Neck: neck supple, CV: RRR, No murmurs, normal s1/s2 Pulm: Abd: soft, nontender, +BS x4 Ext: no clubbing/cyanosis, lymphedema Neuro: Alert, no focal deficits, moves all extremities, Skin: warm/dry Medical - PN: Obj Da - Labs CBC & Chem 7: 04/26/19 03:50 04/26/19 03:50 Labs: Abnormal Lab Results 04/26/19 04/26/19 04/25/19 03:50 03:50 03:45 RBC 3.14 L Hgb 9.6 L Hct 30.2 L MPV Lymphocytes % 10 L Eosinophils % (Manual) 13 H Sodium 147 H Potassium Chloride 94 L 93 L Carbon Dioxide 42 H* 38 H BUN 30 H 28 H Creatinine 2.0 H 2.0 H Uric Acid 13.3 H 12.8 H Lactate Dehydrogenase 299 H 339 H 04/25/19 04/24/19 04/24/19 03:45 04:05 04:05 RBC 3.08 L 3.03 L Hgb 9.4 L 9.3 L Hct 29.5 L 29.0 L MPV 7.3 L 7.3 L Lymphocytes % 9 L 10 L Eosinophils % (Manual) 10 H Sodium Potassium 3.1 L Chloride 94 L Carbon Dioxide 40 H BUN 28 H Creatinine 2.2 H Uric Acid 12.6 H Lactate Dehydrogenase 312 H Meds: Medications Acetaminophen (Tylenol) 650 mg PO Q4-6HP PRN PRN Reason: PAIN/FEVER > 101 Acetazolamide Sodium (Diamox) 250 mg IV DAILY TOMMY Albuterol/Ipratropium (Duoneb) 3 ml NEB Q6HRT TOMMY Budesonide (Pulmicort) 0.5 mg NEB Q12 TOMMY Cefepime HCl (Maxipime) 1 gm IV DAILY TOMMY; Protocol Docusate Sodium (Colace) 100 mg PO BID [facility]OM[facility] Fexofenadine HCl (Kallie) 180 mg PO QDAY [facility]OM[facility] Furosemide (Lasix) 40 mg PO BIDD TOMMY Gabapentin (Neurontin) 300 mg PO DAILY [facility] Heparin Sodium (Porcine) (Heparin) 5,000 unit SQ Q12 TOMMY Magnesium Sulfate (Magnesium Sulfate) 2 gm in 50 mls @ 50 mls/hr IV UD PRN PRN Reason: MG = or < 1.7 Acetaminophen (Ofirmev) 1,000 mg in 100 mls @ 200 mls/hr IV Q6HP PRN PRN Reason: PAIN/FEVER > 101 Levothyroxine Sodium (Synthroid) 88 mcg PO QAMAC [facility]OM[facility] Magnesium Hydroxide (Milk Of Magnesia) 30 ml PO HSP PRN PRN Reason: Constipation Metolazone (Zaroxolyn) 2.5 mg PO Q48 [facility] Mineral Oil (Mineral Oil Enema) 1 dose [place] DAILYP PRN PRN Reason: Constipation Ondansetron HCl (Zofran) 4 mg IV Q4-6HP PRN PRN Reason: Nausea And Vomiting Potassium Chloride (Kdur) 40 meq PO DAILYP PRN PRN Reason: K+ < 3.5 Potassium Chloride (Potassium Chloride) 20 meq PO BIDCC [facility]OM[facility] Senna/Docusate Sodium (Senna Plus Tablet) 2 tab PO HS TOMMY Sodium Chloride (Saline Flush) 10 ml IV Q8 TOMMY Vancomycin HCl (Vancomycin Per Pharmacy) 1 order IV UD TOMMY; Protocol Venlafaxine HCl (Effexor Xr) 37.5 mg PO DAILY [facility] Medical - PN: A/P - Time Spent With Patient Total time spent is greater than 50% in coordination of care (as documented) at patient's floor/unit and/or counseling patient: - Narrative A/P Narrative: A: *Acute hypoxic respiratory failure: -Off noninvasive ventilation -now on 2 L oxygen *Acute decompensated heart failure with preserved EF: -Repeat echo 67% EF, mild AI. *Contraction alkalosis: start Diamox *Gram-positive cocci bacteremia: -await surveillance cultures. ?contaminate *Complicated Pseudomonas UTI: *Anasarca secondary to above: -improving with diuresis. 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 *Neuropathy: continue home dose gabapentin *hypothyroidism: continue home dose thyroxine *Anxiety disorder: continue Effexor Plan: -Start Diamox, on lasix/metolazone decrease in AM -Wean oxygen as tolerated -Continue antibiotic coverage-vancomycin/cefepime, de-escalate based on sensitivities -vancomycin until blood cultures return -Nephrology following -PT OT/nutrition support -Anticipate SNF transfer, consider swing bed transition -ppx: heparin DNR Medical - PN: Qual - VTE Deep Vein Thrombosis/Pulmonary Embolism Present on Admission: No
[2019-04-26] MEDS: FUROSEMIDE 40 MG TABLET PO SCH (15:09)
--- NOTE | 2019-04-26 15:33 | Nephrology Progress Note ---
Subjective Patient information: Note initiated : 04/26/19 at 3:30 pm Service Date, if different from initiated Date: [] Patient: Marilin Calvillo 89 y/o F admitted on 04/22/19 for shortness of breathe. Chief Complaint: [] Principal diagnosis: Acute on chronic respiratory failure with hypoxemia Interval history: The patient was admitted with SOB and acute on chronic hypoxemic respirator failure in the setting of CKD 4 and CHF with pLVEF She in being managed with loop diuretics and thiazides She has developed a contraction alkalosis with HCO3 > 40 and is on acetazolamide and KCl supplementation She has been transferred to step down from ICU She has dementia and unable to give much history Pertinent ROS: Patient is unable to give a meaningful ROS due to dementia Objective - Vital Signs Vital signs: Vital Signs Temp Pulse Pulse Resp BP BP BP 04/26/19 13:21 68 20 04/26/19 12:00 97.5 F 20 155/65 04/26/19 08:21 137/59 04/26/19 08:00 97.9 F 24 H 137/59 04/26/19 07:47 68 20 04/26/19 04:00 97.5 F 71 16 146/61 04/26/19 03:58 146/61 04/26/19 00:01 131/52 04/25/19 23:38 99.0 F 133/64 04/25/19 23:03 99.0 F 75 20 133/64 133/64 04/25/19 20:23 125/56 04/25/19 20:07 98.8 F 76 20 125/56 04/25/19 20:00 04/25/19 19:28 75 16 04/25/19 19:27 76 16 04/25/19 17:03 04/25/19 16:15 146/44 04/25/19 16:00 97.9 F 72 20 146/44 Pulse Ox 04/26/19 13:21 04/26/19 12:00 96 04/26/19 08:21 94 04/26/19 08:00 94 04/26/19 07:47 92 04/26/19 04:00 96 04/26/19 03:58 96 04/26/19 00:01 96 04/25/19 23:38 96 04/25/19 23:03 94 04/25/19 20:23 94 04/25/19 20:07 97 04/25/19 20:00 95 04/25/19 19:28 96 04/25/19 19:27 04/25/19 17:03 95 04/25/19 16:15 04/25/19 16:00 Intake and Output 04/26/19 04/26/19 04/26/19 05:59 13:59 21:59 Intake Total 230 240 Output Total 4 3 Balance 226 237 Intake: Oral 230 240 Output: # of times incontinent of urine 4 3 Other: Meal Breakfast Percent of Meal Consumed 50% Feeding Ability Total Assistance Urine Odor Normal Stool Size Moderate Stool Color Brown Stool Consistency Soft # Bowel Movements 1 Weight 201 lb 11.2 oz Patient Weight 04/27/19 05:59 Weight 201 lb 11.2 oz Intake & Output: Intake & Output 04/26/19 04/26/19 04/26/19 05:59 13:59 21:59 Intake Total 230 240 Output Total 4 3 Balance 226 237 Weight 201 lb 11.2 oz Intake: Oral 230 240 Output: # of times incontinent of urine 4 3 Other: Meal Breakfast Percent of Meal Consumed 50% Feeding Ability Total Assistance Urine Odor Normal Stool Size Moderate Stool Color Brown Stool Consistency Soft # Bowel Movements 1 - General Appearance General appearance: obese, chronically ill EENT: ATNC, PERRL, mucous membranes dry Respiratory: kyphosis, rhonchi Cardiology: no murmurs, edema, regular rate Gastrointestinal: normoactive bowel sounds, no tenderness Integumentary: no rash, ecchymotic Neurologic: no focal deficit, confused, strength 5/5, CN 3-12 intact Musculoskeletal: deformities, no cyanosis, no clubbing Psychiatric: mood/affect appropriate - Lab 04/26/19 03:50 04/26/19 03:50 Most recent lab results Calcium 9.4 mg/dl (8.6-10.4) 04/26/19 03:50 Phosphorus 3.3 mg/dL (2.7-4.5) 04/26/19 03:50 Magnesium 1.8 mg/dL (1.6-2.5) 04/26/19 03:50 - Allied health notes Allied health notes reviewed: nursing Assessment and Plan (1) Acute on chronic renal failure Status: Acute Priority: Medium Comment: Suspect prerenal azotemia due to diuresis and underlying CHF Qualifiers: Acute renal failure type: with other specified pathological lesion Chronic kidney disease stage: stage 4 (severe) Qualified Code(s): N17.8 - Other acute kidney failure; N18.4 - Chronic kidney disease, stage 4 (severe) (2) Heart failure, diastolic, with acute decompensation Status: Acute (3) Acute respiratory failure Status: Chronic Priority: Medium Comment: Inproved with diuresis but developing a contraction alkalosis which will limit further diuresis Qualifiers: Respiratory failure complication: hypoxia and hypercapnia Qualified Code(s): J96.01 - Acute respiratory failure with hypoxia; J96.02 - Acute respiratory failure with hypercapnia (4) CKD (chronic kidney disease) stage 4, GFR 15-29 ml/min Status: Chronic - Narrative A/P Narrative: 1. Continue to monitor GFR, K and CO2 2. VBG may help to decide how alkalotic she is at this point 3. Desat screen 4. Conversion to PO diuretics has been accomplished 5. Will follow up in renal clinic post discharge 6. Would probably stop diamox 7. Suspect gm pos bacteremia is a contaminant. Treat UTI for 5 days max.
[2019-04-26] MEDS: SENNOSIDES/DOCUSATE SODIUM 1 TAB TABLET PO SCH (21:11)
[2019-04-27] MEDS: 0.9 % SODIUM CHLORIDE 10 ML SYRINGE IV SCH ×4 (01:01→22:32)
[2019-04-27] MEDS: IPRATROPIUM/ALBUTEROL 3 ML AMPUL.NEB NEB SCH ×6 (01:13→19:46)
[2019-04-27 05:37] LABS: Hematocrit 29.2 % (36.0-48.0); Hemoglobin 9.2 g/dL (12.0-15.0); Mean Cell Volume 96.5 fL (80.0-100.0); Mean Corpuscular HGB Conc 31.5 g/dL (31.0-36.0); Mean Platelet Volume 7.2 fL (7.4-10.4); Platelet Count 166 K/mcL (140-440); RBC 3.02 M/mcL (4.00-5.20); Red Cell Distribution Width 13.6 % (11.5-14.5); WBC 6.6 K/mcL (4.5-11.0)
[2019-04-27 05:55] LABS: ALT/SGPT 8 U/l (0-40); AST/SGOT 18 U/l (0-37); Albumin 3.4 gm/dL (3.2-5.2); Albumin/Globulin Ratio 1.3 (1.0-2.3); Alkaline Phosphatase 67 U/L (39-117); Bilirubin,Direct < 0.2 mg/dL (0.0-0.3); Bilirubin,Total 0.3 mg/dL (0.0-1.0); Blood Urea Nitrogen 25 mg/dl (8-23); Calcium 9.4 mg/dl (8.6-10.4); Carbon Dioxide 44 mmol/L (22-30); Chloride 93 mmol/L (96-108); Gamma Glutamyl Transpeptidase 15 U/L (5-36); Globulin 2.7 gm/dL (2.2-3.7); Glomerular Filtration Rate 22; Glucose 93 mg/dL (70-105); Lactate Dehydrogenase 239 U/L (94-250); Magnesium 1.8 mg/dL (1.6-2.5); Potassium 2.9 mmol/L (3.3-5.1); Sodium 146 mmol/L (133-145); Triglycerides 158 mg/dl (<150)
[2019-04-27 07:07] LABS: Eosinophils % (Manual) 9 % (0-7); Lymphocytes % 5 % (15-49); Monocytes % (Manual) 9 % (1-12); Platelet Estimate NORMAL (NORMAL); RBC Morphology NORMAL (NORMAL); Segmented Neutrophils % 77 % (38-78)
[2019-04-27] MEDS ORDERED: HYDROCHLOROTHIAZIDE 25 MG TABLET PO ONE (07:34)
[2019-04-27] MEDS ORDERED: POTASSIUM CHLORIDE 20 MEQ TABLET PO ONE (07:37)
--- NOTE | 2019-04-27 07:40 | Internal Med Progress Note ---
Medical - PN: Subj Patient information: Note initiated : 04/27/19 at 7:32 am Service Date, if different from initiated Date: [] Patient: Marilin Calvillo 89 y/o F admitted on 04/22/19 for shortness of breathe. Chief Complaint: [] Interval history: Ms. Calvillo is a 89 year old F with history of chronic kidney disease/CHF who was brought in to [facility] ER from [facility] with increasing weakness, shortness of breath and increased oxygen requirement over the last few days. Patient has been gradually gaining weight with dependent edema. Patient also become more lethargic fatigue unable to perform activities of daily living. She has been doing remarkably dyspnea at rest. Initial workup in the ER was consistent with acute exacerbation of heart failure with pulmonary edema on chest imaging. Patient was profoundly hypoxic . hospitalist service was consulted. Patient is requiring 8 L to maintain sats over 90% and was started promptly on BiPAP At the time of evaluation patient is responding to commands but very fatigued and lethargic. She denies recent changes in medication, NSAID intake, high salt diet. She denies diarrhea dysuria, joint pain, rash, headache, photophobia or chest pain. 04/23-continuing to aggressively diuresis. Persistent anasarca but improved since previous day. Tolerated noninvasive ventilation overnight. Currently off noninvasive ventilation on 3 L oxygen. Creatinine stable. Nephrology on board. Echocardiogram pending. Improved prognosis since previous day. Farhat nue antibiotic coverage for Pseudomonas UTI. Await sensitivities. 04/24-patient doing well. On 3 L oxygen. Diuresing well. Weight down to 215 pounds from 231. Improving anasarca. Potassium 3.1 on replacement. Renal function at baseline. Nephrology on board. On antibiotic coverage for multid rug resistant Pseudomonas UTI/GPC bacteremia. Surveillance cultures pending. Continue vancomycin. No overnight events including telemetry events or concerns per staff. Ongoing wound care. 04/25-patient doing better. Diuresing well. Over 18 fluid pounds weight reduction. Bicarbonate trending up secondary to contraction alkalosis. Start Diamox. Continue diuresis. Anticipate SNF transfer once clinically better. Continue PT OT. Improved blood pressures. Renal function stable. On antib iotic coverage for Pseudomonas UTI. Surveillance cultures negative so far. No overnight fever or chills or concerns per staff. No major telemetry events. 04/26- continues to diurese well. No overnight events. Transition to oral diuretics. Case discussed with Dr. Rikki Sanford who will follow her at the SNF. Anticipate discharge in the next 2-3 days with continued rehabilitation. At this time patient is extremely weak and unable to get out of bed to participate in physical therapy. Now on 2 L oxygen which is her baseline. Transfer to medical floor. Continue nutritional support/aggressive therapy. Continue antibiotic coverage for Pseudomonas UTI. Unclear if gram-positive cocci contaminant however surveillance cultures negative. Normal white count. Sodium up trending at 147. Start metolazone 04/27 Slept well. No overnight events. Leg edema improved per nursing. On 1 L nasal cannula. Occasional cough. No new complaints. Review of Systems: denies headache/fever/chills/nausea/vomiting/chest or abdominal pain/dyspnea/diarrhea. Otherwise see above. - Constitutional Vitals: Vital Signs Temp Pulse Resp BP Pulse Ox 98.3 F 75 18 135/64 96 04/27/19 03:57 04/27/19 03:57 04/27/19 03:57 04/27/19 03:57 04/27/19 03:57 Period Temp Pulse Resp BP Sys/Palafox Pulse Ox Last 24 Hr 97.3 F-98.3 F 53-75 16-24 99-155/59-65 91-97 Intake and Output 04/26/19 04/27/19 04/27/19 21:59 05:59 13:59 Intake Total 280 100 Output Total 3 1 Balance 277 99 Weight 93.894 kg Intake & Output: Intake & Output 04/26/19 04/27/19 04/27/19 21:59 05:59 13:59 Intake Total 280 100 Output Total 3 1 Balance 277 99 Weight 93.894 kg Intake: Nourishment/Supplement quantity 40 (ml) Oral 240 100 Output: # of times incontinent of urine 3 1 Other: Meal Dinner Percent of Meal Consumed 5 Feeding Ability Needs Supervision Nourishment/Supplement name glucerna Urine Appearance Clear Urine Color Bright Yellow Urine Odor Normal # Voids 1 Exam: General: Alert, Awake, No acute Distress Eyes/N/T: EOMI, Head/Neck: neck supple, CV: RRR, 3/6 SM, normal s1/s2 Pulm: Mild bibasilar Rales, no wheezing Abd: soft, nontender, +BS x4 Ext: no clubbing/cyanosis, lymphedema minimal left 2+ right Neuro: Alert, no focal deficits, moves all extremities, Skin: warm/dry Medical - PN: Obj Da - Labs CBC & Chem 7: 04/27/19 04:10 04/27/19 04:10 Labs: Abnormal Lab Results 04/27/19 04/27/19 04/26/19 04:10 04:10 03:50 RBC 3.02 L Hgb 9.2 L Hct 29.2 L MPV 7.2 L Lymphocytes % 5 L Eosinophils % (Manual) 9 H Sodium 146 H 147 H Potassium 2.9 L* Chloride 93 L 94 L Carbon Dioxide 44 H* 42 H* BUN 25 H 30 H Creatinine 2.0 H 2.0 H Uric Acid 13.0 H 13.3 H Lactate Dehydrogenase 299 H Triglycerides 158 H 04/26/19 04/25/19 04/25/19 03:50 03:45 03:45 RBC 3.14 L 3.08 L Hgb 9.6 L 9.4 L Hct 30.2 L 29.5 L MPV 7.3 L Lymphocytes % 10 L 9 L Eosinophils % (Manual) 13 H 10 H Sodium Potassium Chloride 93 L Carbon Dioxide 38 H BUN 28 H Creatinine 2.0 H Uric Acid 12.8 H Lactate Dehydrogenase 339 H Triglycerides 04/24/19 04:05 RBC Hgb Hct MPV Lymphocytes % 10 L Eosinophils % (Manual) Sodium Potassium Chloride Carbon Dioxide BUN Creatinine Uric Acid Lactate Dehydrogenase Triglycerides Meds: Medications Acetaminophen (Tylenol) 650 mg PO Q4-6HP PRN PRN Reason: PAIN/FEVER > 101 Acetazolamide Sodium (Diamox) 250 mg IV DAILY [facility] Albuterol/Ipratropium (Duoneb) 3 ml NEB Q6HRT [facility] Last Admin: 04/27/19 01:13 Dose: 3 ml Documented by: Budesonide (Pulmicort) 0.5 mg NEB Q12 [facility] Last Admin: 04/26/19 19:34 Dose: 0.5 mg Documented by: Cefepime HCl (Maxipime) 1 gm IV DAILY [facility]; Protocol Docusate Sodium (Colace) 100 mg PO BID [facility] Last Admin: 04/26/19 21:11 Dose: 100 mg Documented by: Fexofenadine HCl (Kallie) 180 mg PO QDAY [facility] Furosemide (Lasix) 40 mg PO BIDD [facility] Last Admin: 04/26/19 15:09 Dose: 40 mg Documented by: Gabapentin (Neurontin) 300 mg PO DAILY [facility] Heparin Sodium (Porcine) (Heparin) 5,000 unit SQ Q12 [facility] Last Admin: 04/26/19 21:11 Dose: 5,000 unit Documented by: Magnesium Sulfate (Magnesium Sulfate) 2 gm in 50 mls @ 50 mls/hr IV UD PRN PRN Reason: MG = or < 1.7 Acetaminophen (Ofirmev) 1,000 mg in 100 mls @ 200 mls/hr IV Q6HP PRN PRN Reason: PAIN/FEVER > 101 Levothyroxine Sodium (Synthroid) 88 mcg PO QAMAC [facility] Magnesium Hydroxide (Milk Of Magnesia) 30 ml PO HSP PRN PRN Reason: Constipation Metolazone (Zaroxolyn) 2.5 mg PO Q48 [facility] Mineral Oil (Mineral Oil Enema) 1 dose AR DAILYP PRN PRN Reason: Constipation Ondansetron HCl (Zofran) 4 mg IV Q4-6HP PRN PRN Reason: Nausea And Vomiting Potassium Chloride (Kdur) 40 meq PO DAILYP PRN PRN Reason: K+ < 3.5 Last Admin: 04/27/19 06:12 Dose: 40 meq Documented by: Potassium Chloride (Potassium Chloride) 20 meq PO BIDCC [facility] Last Admin: 04/26/19 17:17 Dose: 20 meq Documented by: Senna/Docusate Sodium (Senna Plus Tablet) 2 tab PO HS [facility] Last Admin: 04/26/19 21:11 Dose: 2 tab Documented by: Sodium Chloride (Saline Flush) 10 ml IV Q8 [facility] Last Admin: 04/27/19 05:03 Dose: Not Given Documented by: Vancomycin HCl (Vancomycin Per Pharmacy) 1 order IV UD [facility]; Protocol Venlafaxine HCl (Effexor Xr) 37.5 mg PO DAILY [facility] Medical - PN: A/P - Time Spent With Patient Total time spent is greater than 50% in coordination of care (as documented) at patient's floor/unit and/or counseling patient: - Narrative A/P Narrative: A: *Acute hypoxic respiratory failure: -Off noninvasive ventilation -now on 1 L oxygen *Acute decompensated heart failure with preserved EF: -Repeat echo 67% EF, mild AI. *Contraction alkalosis: *Gram-positive cocci bacteremia: -await surveillance cultures. ?contaminate *Complicated Pseudomonas UTI: *Anasarca secondary to above: -improving with diuresis. 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 *Hypokalemia: *Anemia, chronic: *Neuropathy: continue home dose gabapentin *hypothyroidism: continue home dose thyroxine *Anxiety disorder: continue Effexor Plan: -Diamox x1 today, d/c lasix/metolazone for now -Wean oxygen as tolerated -Continue antibiotic coverage-vancomycin/cefepime, de-escalate based on sensitivities -vancomycin until blood cultures return -Nephrology following -PT OT/nutrition support -Anticipate SNF transfer, consider swing bed transition -ppx: heparin DNR Medical - PN: Qual - VTE Deep Vein Thrombosis/Pulmonary Embolism Present on Admission: No
[2019-04-27] MEDS: BUDESONIDE 0.5 MG/2 ML AMPUL.NEB NEB SCH ×2 (07:44→19:47)
[2019-04-27] MEDS: LEVOTHYROXINE 88 MCG TABLET PO SCH (08:19)
[2019-04-27] MEDS: FUROSEMIDE 40 MG TABLET PO SCH (08:29)
[2019-04-27] MEDS: POTASSIUM CHLORIDE 20 MEQ/15 ML ML PO SCH ×2 (08:29→17:27)
[2019-04-27 08:30] LABS: ABG Methemoglobin 0 % (0.4-1.5); Total Hemoglobin 9.6 gm/dL (12.0-15.0); VBG Base Excess 20.9 (-2.0-2.0); VBG Oxygen Saturation 95.1 % (40.0-70.0); VBG PCO2 71.4 mmHg (41.0-51.0); VBG PH 7.45 U (7.32-7.42); VBG PO2 161 mmHg (25-40); VBG Total CO2 50.1 mmol/L (25.0-29.0)
[2019-04-27 08:52] LABS: Vancomycin,Random 15.9 ug/mL
[2019-04-27] MEDS ORDERED: acetaZOLAMIDE SOD 500 MG VIAL IV SCH (09:00)
[2019-04-27] MEDS ORDERED: METOLAZONE 2.5 MG TABLET PO SCH (09:00)
[2019-04-27] MEDS ORDERED: acetaZOLAMIDE SOD 500 MG VIAL IV ONE ×2 (09:00)
[2019-04-27] MEDS: FEXOFENADINE 180 MG TABLET PO SCH (09:22)
[2019-04-27] MEDS: VENLAFAXINE 37.5 MG TAB.ER.24H PO SCH (09:23)
[2019-04-27] MEDS: GABAPENTIN 300 MG CAPSULE PO SCH (09:23)
[2019-04-27] MEDS: HEPARIN 5,000 UNIT/ML VIAL SQ SCH ×2 (09:25→22:31)
[2019-04-27] MEDS: CEFEPIME 1 GM VIAL IV SCH (09:25)
[2019-04-27] MEDS: DOCUSATE SODIUM 100 MG CAPSULE PO SCH ×2 (09:50→21:26)
[2019-04-27] MEDS ORDERED: VANCOMYCIN 500 MG in 0.9 % SODIUM CHLORIDE 100 ML IV ONE (10:00)
--- NOTE | 2019-04-27 11:50 | Nephrology Progress Note ---
Subjective Patient information: Note initiated : 04/27/19 at 11:49 am Service Date, if different from initiated Date: [] Patient: Marilin Calvillo 89 y/o F admitted on 04/22/19 for shortness of breathe. Chief Complaint: [] Principal diagnosis: Acute on chronic respiratory failure with hypoxemia Pertinent ROS: Nothing to add. However, patients dementia and chronic illness limit patients ability to interact with staff for history Objective - Vital Signs Vital signs: Vital Signs Temp Pulse Pulse Resp BP BP Pulse Ox 04/27/19 08:10 98.3 F 75 20 144/54 91 04/27/19 07:46 70 18 96 04/27/19 03:57 98.3 F 75 18 135/64 96 04/27/19 00:00 97.6 F 53 L 16 99/62 97 04/26/19 19:34 71 16 91 04/26/19 19:30 97.8 F 75 16 140/63 93 04/26/19 15:43 97.3 F 20 106/62 97 04/26/19 13:21 68 20 04/26/19 12:00 97.5 F 20 155/65 96 Intake and Output 04/26/19 04/27/19 04/27/19 21:59 05:59 13:59 Intake Total 280 100 50 Output Total 3 1 2 Balance 277 99 48 Intake: Nourishment/Supplement quantity 40 (ml) Oral 240 100 50 Output: # of times incontinent of urine 3 1 2 Other: Meal Dinner Breakfast Percent of Meal Consumed 5 5 Feeding Ability Needs Supervision Nourishment/Supplement name glucerna Urine Appearance Clear Urine Color Bright Yellow Urine Odor Normal Stool Size Large Stool Color Brown Stool Consistency Soft # Voids 1 Weight 207 lb Intake & Output: Intake & Output 04/26/19 04/27/19 04/27/19 21:59 05:59 13:59 Intake Total 280 100 50 Output Total 3 1 2 Balance 277 99 48 Weight 207 lb Intake: Nourishment/Supplement quantity 40 (ml) Oral 240 100 50 Output: # of times incontinent of urine 3 1 2 Other: Meal Dinner Breakfast Percent of Meal Consumed 5 5 Feeding Ability Needs Supervision Nourishment/Supplement name glucerna Urine Appearance Clear Urine Color Bright Yellow Urine Odor Normal Stool Size Large Stool Color Brown Stool Consistency Soft # Voids 1 - General Appearance General appearance: obese, chronically ill EENT: PERRL, mucous membranes dry, vision intact Neck: no JVD, no thyromegaly, no carotid bruit, supple Respiratory: kyphosis Cardiology: no murmurs, edema, normal S1, normal S2 Gastrointestinal: normoactive bowel sounds, no tenderness Integumentary: no rash, ecchymotic Neurologic: no focal deficit, no asterixis, confused, disoriented, CN 3-12 intact Musculoskeletal: no cyanosis, no clubbing Psychiatric: mood/affect appropriate - Lab 04/27/19 04:10 04/27/19 04:10 Most recent lab results Calcium 9.4 mg/dl (8.6-10.4) 04/27/19 04:10 Phosphorus 3.0 mg/dL (2.7-4.5) 04/27/19 04:10 Magnesium 1.8 mg/dL (1.6-2.5) 04/27/19 04:10 Developing eosinophilia since admission=> ABx 7.45/75 and HCO3 40's suggest marked contraction alkalosis Assessment and Plan (1) Acute on chronic renal failure Stable. Underlying etiology said to be MARLO (NSAIDs) Status: Acute Priority: Medium Comment: Suspect prerenal azotemia due to diuresis and underlying CHF Qualifiers: Acute renal failure type: with other specified pathological lesion Chronic kidney disease stage: stage 4 (severe) Qualified Code(s): N17.8 - Other acute kidney failure; N18.4 - Chronic kidney disease, stage 4 (severe) (2) Heart failure, diastolic, with acute decompensation Euvolemic or on the dry side Adjusting diuretics pLVEF on prior echo Status: Acute (3) Acute respiratory failure Seems improved Reched the limit of diuresis Status: Chronic Priority: Medium Comment: Inproved with diuresis but developing a contraction alkalosis which will limit further diuresis. Qualifiers: Respiratory failure complication: hypoxia and hypercapnia Qualified Code(s): J96.01 - Acute respiratory failure with hypoxia; J96.02 - Acute respiratory failure with hypercapnia (4) CKD (chronic kidney disease) stage 4, GFR 15-29 ml/min Stable, Dr Way's note suggest MARLO from NSAIDs Status: Chronic (5) Metabolic alkalosis with respiratory acidosis Stop lasix and thiazide Continue po KCl Use aldactone to prevent further k loss Recheck VBG on Monday Status: Acute Priority: High (6) Hypokalemia, excessive renal losses Stop lasix and thiazides Correct metabolic alkalosis with diamox Po replacement Add aldactone Monitor daily Status: Acute Priority: Medium (7) Eosinophil count raised Monitor. No rash of fever or ARF to suggest AIN. Finish course for UTI Status: Acute - Narrative A/P Narrative: 1. Continue to monitor GFR, K and CO2 2. Stop lasix and Thiazides 3. Replace K 4. Add aldactone 5. Will follow up in renal clinic post discharge 6. Case discussed with attending
--- NOTE | 2019-04-27 14:17 | XRay Report ---
HISTORY: Follow-up congestive heart failure after diuresis FINDINGS: The heart remains mildly enlarged. There are multiple bands of consolidated lung tissue bilaterally. The involvement in the upper lobes has become worse since 04/24/19. The basilar consolidation is stable. There is also a subtle alveolar opacity in the lung parenchyma bilaterally. No lobar consolidation is present and there is no pleural effusion. The pulmonary vessels are obscured by the diffuse parenchymal disease. IMPRESSION: Persistent widespread opacities in both lungs which may be a combination of atelectasis, scar, pneumonia and congestive heart failure. Since there has been no improvement following diuresis, I suspect most of the pulmonary disease is due to causes other than pulmonary edema. Interpreted and Authenticated by: Corby Quiñonez 04/27/19
[2019-04-27] MEDS: acetaZOLAMIDE 250 MG TABLET PO SCH (17:27)
[2019-04-27] MEDS: SENNOSIDES/DOCUSATE SODIUM 1 TAB TABLET PO SCH (21:26)
[2019-04-28] MEDS: IPRATROPIUM/ALBUTEROL 3 ML AMPUL.NEB NEB SCH ×4 (00:19→19:16)
[2019-04-28] MEDS: acetaZOLAMIDE 250 MG TABLET PO SCH ×5 (00:32→23:59)
[2019-04-28 05:10] LABS: ABG Methemoglobin 0.3 % (0.4-1.5); Total Hemoglobin 9.9 gm/dL (12.0-15.0); VBG Base Excess 16.2 (-2.0-2.0); VBG HCO3 41.6 mmol/L (24.0-28.0); VBG Oxygen Saturation 91.9 % (40.0-70.0); VBG PH 7.49 U (7.32-7.42); VBG PO2 163 mmHg (25-40); VBG Total CO2 43.3 mmol/L (25.0-29.0)
[2019-04-28] MEDS: 0.9 % SODIUM CHLORIDE 10 ML SYRINGE IV SCH ×3 (05:28→20:15)
[2019-04-28 05:46] LABS: ALT/SGPT 8 U/l (0-40); AST/SGOT 23 U/l (0-37); Albumin 3.4 gm/dL (3.2-5.2); Albumin/Globulin Ratio 1.1 (1.0-2.3); Alkaline Phosphatase 67 U/L (39-117); Bilirubin,Direct < 0.2 mg/dL (0.0-0.3); Bilirubin,Total 0.3 mg/dL (0.0-1.0); Blood Urea Nitrogen 27 mg/dl (8-23); Calcium 9.3 mg/dl (8.6-10.4); Carbon Dioxide 34 mmol/L (22-30); Chloride 96 mmol/L (96-108); Gamma Glutamyl Transpeptidase 16 U/L (5-36); Globulin 3.1 gm/dL (2.2-3.7); Glomerular Filtration Rate 22; Glucose 84 mg/dL (70-105); Lactate Dehydrogenase 295 U/L (94-250); Phosphorous 2.8 mg/dL (2.7-4.5); Potassium 3.8 mmol/L (3.3-5.1); Sodium 144 mmol/L (133-145); Triglycerides 173 mg/dl (<150); Uric Acid 12.2 mg/dL (2.5-8.0); Vancomycin,Random 19.3 ug/mL
[2019-04-28] MEDS: POTASSIUM CHLORIDE 20 MEQ/15 ML ML PO SCH ×2 (07:49→17:54)
[2019-04-28] MEDS: LEVOTHYROXINE 88 MCG TABLET PO SCH (07:49)
[2019-04-28] MEDS: BUDESONIDE 0.5 MG/2 ML AMPUL.NEB NEB SCH ×2 (07:50→19:16)
--- NOTE | 2019-04-28 07:54 | Internal Med Progress Note ---
Medical - PN: Subj Patient information: Note initiated : 04/28/19 at 7:47 am Service Date, if different from initiated Date: [] Patient: Marilin Calvillo 89 y/o F admitted on 04/22/19 for shortness of breathe. Chief Complaint: [] Interval history: Ms. Calvillo is a 89 year old F with history of chronic kidney disease/CHF who was brought in to [facility] ER from [facility] with increasing weakness, shortness of breath and increased oxygen requirement over the last few days. Patient has been gradually gaining weight with dependent edema. Patient also become more lethargic fatigue unable to perform activities of daily living. She has been doing remarkably dyspnea at rest. Initial workup in the ER was consistent with acute exacerbation of heart failure with pulmonary edema on chest imaging. Patient was profoundly hypoxic . hospitalist service was consulted. Patient is requiring 8 L to maintain sats over 90% and was started promptly on BiPAP At the time of evaluation patient is responding to commands but very fatigued and lethargic. She denies recent changes in medication, NSAID intake, high salt diet. She denies diarrhea dysuria, joint pain, rash, headache, photophobia or chest pain. 04/23-continuing to aggressively diuresis. Persistent anasarca but improved since previous day. Tolerated noninvasive ventilation overnight. Currently off noninvasive ventilation on 3 L oxygen. Creatinine stable. Nephrology on board. Echocardiogram pending. Improved prognosis since previous day. Farhat nue antibiotic coverage for Pseudomonas UTI. Await sensitivities. 04/24-patient doing well. On 3 L oxygen. Diuresing well. Weight down to 215 pounds from 231. Improving anasarca. Potassium 3.1 on replacement. Renal function at baseline. Nephrology on board. On antibiotic coverage for multid rug resistant Pseudomonas UTI/GPC bacteremia. Surveillance cultures pending. Continue vancomycin. No overnight events including telemetry events or concerns per staff. Ongoing wound care. 04/25-patient doing better. Diuresing well. Over 18 fluid pounds weight reduction. Bicarbonate trending up secondary to contraction alkalosis. Start Diamox. Continue diuresis. Anticipate SNF transfer once clinically better. Continue PT OT. Improved blood pressures. Renal function stable. On antib iotic coverage for Pseudomonas UTI. Surveillance cultures negative so far. No overnight fever or chills or concerns per staff. No major telemetry events. 04/26- continues to diurese well. No overnight events. Transition to oral diuretics. Case discussed with Dr. Rikki Sanford who will follow her at the SNF. Anticipate discharge in the next 2-3 days with continued rehabilitation. At this time patient is extremely weak and unable to get out of bed to participate in physical therapy. Now on 2 L oxygen which is her baseline. Transfer to medical floor. Continue nutritional support/aggressive therapy. Continue antibiotic coverage for Pseudomonas UTI. Unclear if gram-positive cocci contaminant however surveillance cultures negative. Normal white count. Sodium up trending at 147. Start metolazone 04/27 Slept well. No overnight events. Leg edema improved per nursing. On 1 L nasal cannula. Occasional cough. No new complaints. 04/28 Poor sleep. Has cough but unable to produce sputum. On 1 L of oxygen with good saturations in the low to mid 90s. Review of Systems: denies headache/fever/chills/nausea/vomiting/chest or abdominal pain/dyspnea/diarrhea. Otherwise see above. - Constitutional Vitals: Vital Signs Temp Pulse Resp BP Pulse Ox 98.5 F 75 20 134/66 93 04/28/19 07:00 04/28/19 04:00 04/28/19 07:00 04/28/19 07:00 04/28/19 07:00 Period Temp Pulse Resp BP Sys/Palafox Pulse Ox Last 24 Hr 97.5 F-98.5 F 61-86 18-24 124-160/54-70 91-97 Intake and Output 04/27/19 04/28/19 04/28/19 21:59 05:59 13:59 Intake Total 200 230 Output Total 3 3 1 Balance 197 227 -1 Weight 91.852 kg Intake & Output: Intake & Output 04/27/19 04/28/19 04/28/19 21:59 05:59 13:59 Intake Total 200 230 Output Total 3 3 1 Balance 197 227 -1 Weight 91.852 kg Intake: Oral 200 230 Output: # of times incontinent of urine 3 3 1 Other: Meal Dinner Percent of Meal Consumed 50% Stool Size Large Stool Color Brown Stool Consistency Watery Loose # of times incontinent of 1 Bowels Exam: General: Alert, Awake, No acute Distress Eyes/N/T: EOMI, Head/Neck: neck supple, CV: RRR, 3/6 SM, normal s1/s2 Pulm: Mild bibasilar Rales/rhonchi improving, no wheezing Abd: soft, nontender, +BS x4 Ext: no clubbing/cyanosis, lymphedema minimal left 1-2+ right Neuro: Alert, no focal deficits, moves all extremities, Skin: warm/dry Medical - PN: Obj Da - Labs CBC & Chem 7: 04/27/19 04:10 04/28/19 04:15 Labs: Abnormal Lab Results 04/28/19 04/28/19 04/27/19 04:15 04:15 07:51 RBC Hgb Hct MPV Lymphocytes % Eosinophils % (Manual) ABG Methemoglobin 0.3 L 0 L VBG pH 7.49 H 7.45 H VBG pCO2 56.0 H 71.4 H* VBG pO2 163 H 161 H VBG HCO3 41.6 H* 48.0 H* VBG Total CO2 43.3 H* 50.1 H* VBG O2 Saturation 91.9 H 95.1 H VBG Base Excess 16.2 H 20.9 H Carboxyhemoglobin 7.0 H 4.2 H Total Hemoglobin 9.9 L 9.6 L Sodium Potassium Chloride Carbon Dioxide 34 H BUN 27 H Creatinine 2.0 H Uric Acid 12.2 H Lactate Dehydrogenase 295 H Triglycerides 173 H 04/27/19 04/27/19 04/26/19 04:10 04:10 03:50 RBC 3.02 L Hgb 9.2 L Hct 29.2 L MPV 7.2 L Lymphocytes % 5 L Eosinophils % (Manual) 9 H ABG Methemoglobin VBG pH VBG pCO2 VBG pO2 VBG HCO3 VBG Total CO2 VBG O2 Saturation VBG Base Excess Carboxyhemoglobin Total Hemoglobin Sodium 146 H 147 H Potassium 2.9 L* Chloride 93 L 94 L Carbon Dioxide 44 H* 42 H* BUN 25 H 30 H Creatinine 2.0 H 2.0 H Uric Acid 13.0 H 13.3 H Lactate Dehydrogenase 299 H Triglycerides 158 H 04/26/19 03:50 RBC 3.14 L Hgb 9.6 L Hct 30.2 L MPV Lymphocytes % 10 L Eosinophils % (Manual) 13 H ABG Methemoglobin VBG pH VBG pCO2 VBG pO2 VBG HCO3 VBG Total CO2 VBG O2 Saturation VBG Base Excess Carboxyhemoglobin Total Hemoglobin Sodium Potassium Chloride Carbon Dioxide BUN Creatinine Uric Acid Lactate Dehydrogenase Triglycerides Meds: Medications Acetaminophen (Tylenol) 650 mg PO Q4-6HP PRN PRN Reason: PAIN/FEVER > 101 Acetazolamide (Acetazolamide) 250 mg PO Q6 [facility] Stop: 05/01/19 12:00 Last Admin: 04/28/19 05:28 Dose: 250 mg Documented by: Albuterol/Ipratropium (Duoneb) 3 ml NEB Q6HRT [facility] Last Admin: 04/28/19 00:19 Dose: 3 ml Documented by: Budesonide (Pulmicort) 0.5 mg NEB Q12 [facility] Last Admin: 04/27/19 19:47 Dose: 0.5 mg Documented by: Cefepime HCl (Maxipime) 1 gm IV DAILY [facility]; Protocol Last Admin: 04/27/19 09:25 Dose: 1 gm Documented by: Docusate Sodium (Colace) 100 mg PO BID [facility] Last Admin: 04/27/19 21:26 Dose: Not Given Documented by: Fexofenadine HCl (Kallie) 180 mg PO QDAY [facility] Last Admin: 04/27/19 09:22 Dose: 180 mg Documented by: Gabapentin (Neurontin) 300 mg PO DAILY [facility] Last Admin: 04/27/19 09:23 Dose: 300 mg Documented by: Heparin Sodium (Porcine) (Heparin) 5,000 unit SQ Q12 [facility] Last Admin: 04/27/19 22:31 Dose: 5,000 unit Documented by: Magnesium Sulfate (Magnesium Sulfate) 2 gm in 50 mls @ 50 mls/hr IV UD PRN PRN Reason: MG = or < 1.7 Acetaminophen (Ofirmev) 1,000 mg in 100 mls @ 200 mls/hr IV Q6HP PRN PRN Reason: PAIN/FEVER > 101 Levothyroxine Sodium (Synthroid) 88 mcg PO QAMAC [facility] Last Admin: 04/27/19 08:19 Dose: 88 mcg Documented by: Magnesium Hydroxide (Milk Of Magnesia) 30 ml PO HSP PRN PRN Reason: Constipation Mineral Oil (Mineral Oil Enema) 1 dose PA DAILYP PRN PRN Reason: Constipation Ondansetron HCl (Zofran) 4 mg IV Q4-6HP PRN PRN Reason: Nausea And Vomiting Potassium Chloride (Kdur) 40 meq PO DAILYP PRN PRN Reason: K+ < 3.5 Last Admin: 04/27/19 06:12 Dose: 40 meq Documented by: Potassium Chloride (Potassium Chloride) 20 meq PO BIDCC [facility] Last Admin: 04/27/19 17:27 Dose: 20 meq Documented by: Senna/Docusate Sodium (Senna Plus Tablet) 2 tab PO HS [facility] Last Admin: 04/27/19 21:26 Dose: Not Given Documented by: Sodium Chloride (Saline Flush) 10 ml IV Q8 [facility] Last Admin: 04/28/19 05:28 Dose: 10 ml Documented by: Spironolactone (Aldactone) 25 mg PO DAILY [facility] Stop: 05/01/19 08:59 Venlafaxine HCl (Effexor Xr) 37.5 mg PO DAILY [facility] Last Admin: 04/27/19 09:23 Dose: 37.5 mg Documented by: - ABG Interpretation ABG results: 04/27/19 04/28/19 07:51 04:15 ABG Methemoglobin 0 L 0.3 L VBG pH 7.45 H 7.49 H VBG pCO2 71.4 H* 56.0 H VBG pO2 161 H 163 H VBG HCO3 48.0 H* 41.6 H* VBG Total CO2 50.1 H* 43.3 H* VBG O2 Saturation 95.1 H 91.9 H VBG Base Excess 20.9 H 16.2 H Medical - PN: A/P - Time Spent With Patient Total time spent is greater than 50% in coordination of care (as documented) at patient's floor/unit and/or counseling patient: - Narrative A/P Narrative: A: *Acute hypoxic respiratory failure: -Off noninvasive ventilation -now on 1 L oxygen with sats low-mid 90's *Acute decompensated heart failure with preserved EF: -Repeat echo 67% EF, mild AI. *Contraction alkalosis: Improved -unable to get accurate i/o's given incontinence *Gram-positive cocci bacteremia: 11/30 bottles and coag neg staph, determined contaminant -await surveillance cultures. ?contaminate *Complicated Pseudomonas (resistant to quinolones) UTI: *Anasarca secondary to above: -improving with diuresis. *Chronic kidney disease stage III B/IV: managed by nephrology *Hypokalemia: resolved *Hypernatremia: resolved *Anemia, chronic: *Neuropathy: continue home dose gabapentin *hypothyroidism: continue home dose thyroxine *Anxiety disorder: continue Effexor *?dementia: Plan: -Diamox per nephro, aldactone -Nephrology following -Lasix held for now -Wean oxygen as tolerated -Continue cefepime -CT chest to better delineate pulmonary infiltrates -PT OT/nutrition support -Anticipate SNF transfer, consider swing bed transition -ppx: heparin DNR Medical - PN: Qual - VTE Deep Vein Thrombosis/Pulmonary Embolism Present on Admission: No
[2019-04-28] MEDS: GABAPENTIN 300 MG CAPSULE PO SCH (08:28)
[2019-04-28] MEDS: CEFEPIME 1 GM VIAL IV SCH (08:28)
[2019-04-28] MEDS: HEPARIN 5,000 UNIT/ML VIAL SQ SCH ×2 (08:28→20:15)
[2019-04-28] MEDS: VENLAFAXINE 37.5 MG TAB.ER.24H PO SCH (08:29)
[2019-04-28] MEDS: DOCUSATE SODIUM 100 MG CAPSULE PO SCH ×2 (08:29→20:15)
[2019-04-28] MEDS: SPIRONOLACTONE 25 MG TABLET PO SCH (08:29)
[2019-04-28] MEDS: FEXOFENADINE 180 MG TABLET PO SCH (08:29)
--- NOTE | 2019-04-28 09:32 | Cat Scan Report ---
CLINICAL INFORMATION: Shortness of breath and pulmonary infiltrates COMPARISON: Chest x-ray on 04/27/19 TECHNIQUE: 2.5 mm axial slices were obtained from the lung apices through the bases without intravenous contrast. Sagittal, coronal and axial reformatted images were processed and reviewed at bone, lung and soft tissue windows. 7 mm axial MIP images were also reconstructed. The radiation exposure was limited using dose reduction technology. FINDINGS: There are multiple irregularly shaped bands of consolidated lung parenchyma throughout both lung juarez. The greatest involvement is in the lower lobes. There are also small patchy alveolar infiltrates in the basilar segments. There is a moderate size band of atelectasis contiguous with the pleura posteriorly in the right lower lobe and posterior segment right upper lobe. Tiny bilateral layering pleural effusions are present. There is no interstitial edema. The heart is mildly enlarged. 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 There are calcified plaques in the lime coronary arteries. The aorta is normal in caliber. There are scattered plaques along the wall of the arch and descending aorta. Central pulmonary vessels vessels are enlarged. Patient may have pulmonary artery hypertension. Pulmonary emboli cannot be evaluated on nonenhanced study. Patient has a bulbous left lobe of the liver. No liver mass is identified. Does the patient have cirrhosis? There is no ascites in the upper abdomen. IMPRESSION: Multiple bands of atelectasis throughout both lungs and small patchy infiltrates in both lower lobes Cardiomegaly Enlarged central pulmonary arteries which may be seen with pulmonary artery hypertension Interpreted and Authenticated by: Corby Quiñonez 04/28/19
--- NOTE | 2019-04-28 13:48 | Nephrology Progress Note ---
Subjective Patient information: Note initiated : 04/28/19 at 1:45 pm Service Date, if different from initiated Date: [] Patient: Marilin Calvillo 89 y/o F admitted on 04/22/19 for shortness of breathe. Chief Complaint: [] Principal diagnosis: Acute on chronic respiratory failure with hypoxemia Interval history: Appears more lethargic today Pertinent ROS: Currently, cannot respond to questions due to dementia and sleeping. See prior ROS remarks Additional PMFSH (Level 3 Only): Pulmonary HTN and corpulmonale are likely present Objective - Vital Signs Vital signs: Vital Signs Temp Pulse Pulse Resp BP Pulse Ox 04/28/19 13:08 71 20 04/28/19 11:43 97.6 F 20 148/66 90 04/28/19 07:55 72 18 93 04/28/19 07:00 98.5 F 20 134/66 93 04/28/19 04:00 75 18 128/55 92 04/28/19 00:25 97.6 F 75 18 124/55 95 04/27/19 20:00 97.5 F 70 18 128/61 93 04/27/19 19:50 86 24 H 97 04/27/19 15:47 97.6 F 72 20 136/54 93 04/27/19 13:53 61 20 Intake and Output 04/27/19 04/28/19 04/28/19 21:59 05:59 13:59 Intake Total 200 230 Output Total 3 3 3 Balance 197 227 -3 Intake: Oral 200 230 Output: # of times incontinent of urine 3 3 3 Other: Meal Dinner Breakfast Percent of Meal Consumed 50% 0% Stool Size Large Stool Color Brown Stool Consistency Watery Loose # of times incontinent of 1 Bowels Weight 202 lb 8 oz Intake & Output: Intake & Output 04/27/19 04/28/19 04/28/19 21:59 05:59 13:59 Intake Total 200 230 Output Total 3 3 3 Balance 197 227 -3 Weight 202 lb 8 oz Intake: Oral 200 230 Output: # of times incontinent of urine 3 3 3 Other: Meal Dinner Breakfast Percent of Meal Consumed 50% 0% Stool Size Large Stool Color Brown Stool Consistency Watery Loose # of times incontinent of 1 Bowels - General Appearance General appearance: chronically ill, frail EENT: PERRL, mucous membranes dry Neck: JVD, no thyromegaly Respiratory: kyphosis Cardiology: no murmurs, no rub, edema, normal S1, normal S2 Gastrointestinal: normoactive bowel sounds, no tenderness, no guarding Integumentary: no rash, ecchymotic Neurologic: no focal deficit Musculoskeletal: no cyanosis, no clubbing Psychiatric: mood/affect appropriate - Lab 04/27/19 04:10 04/28/19 04:15 Most recent lab results Calcium 9.3 mg/dl (8.6-10.4) 04/28/19 04:15 Phosphorus 2.8 mg/dL (2.7-4.5) 04/28/19 04:15 Magnesium 2.0 mg/dL (1.6-2.5) 04/28/19 04:15 CT Chest: MPRESSION: Multiple bands of atelectasis throughout both lungs and small patchy infiltrates in both lower lobes Cardiomegaly Enlarged central pulmonary arteries which may be seen with pulmonary artery hypertension Interpreted and Authenticated by: Corby Quiñonez 04/28/19 - Imaging Kidney/bladder ultrasound: report reviewed - Allied health notes Allied health notes reviewed: nursing Assessment and Plan (1) Acute on chronic renal failure Stable. Underlying etiology said to be MARLO (NSAIDs) Status: Acute Priority: Medium Comment: Suspect prerenal azotemia due to diuresis and underlying CHF Qualifiers: Acute renal failure type: with other specified pathological lesion Chronic kidney disease stage: stage 4 (severe) Qualified Code(s): N17.8 - Other acute kidney failure; N18.4 - Chronic kidney disease, stage 4 (severe) (2) Heart failure, diastolic, with acute decompensation Euvolemic or on the dry side Adjusting diuretics pLVEF on prior echo CT suggests pulmonary HTN Status: Acute (3) Acute respiratory failure Seems improved Reched the limit of diuresis Lethargic amd body habitus contribute to poor pulmonary mechanics Status: Chronic Priority: Medium Comment: Inproved with diuresis but developing a contraction alkalosis which will limit further diuresis. Qualifiers: Respiratory failure complication: hypoxia and hypercapnia Qualified Code(s): J96.01 - Acute respiratory failure with hypoxia; J96.02 - Acute respiratory failure with hypercapnia (4) CKD (chronic kidney disease) stage 4, GFR 15-29 ml/min Stable, Dr Way's note suggest MARLO from NSAIDs Stable GFR Not a dialysis candidate in my opinion Status: Chronic (5) Metabolic alkalosis with respiratory acidosis Stop lasix and thiazide Continue po KCl Use aldactone to prevent further k loss Recheck VBG on Monday Improving on paper Continue diamox and spironolactone Status: Acute Priority: High (6) Hypokalemia, excessive renal losses Stop lasix and thiazides Correct metabolic alkalosis with diamox Po replacement Add aldactone Monitor daily Status: Acute Priority: Medium (7) Eosinophil count raised Monitor. No rash of fever or ARF to suggest AIN. Finish course for UTI Status: Acute - Narrative A/P Narrative: 1. Continue to monitor GFR, K and CO2 2. Stop Lasix and Thiazides 3. Replace K 4. Add Aldactone 5. Will follow up in renal clinic post discharge 6 No Rx changes today 7. Ultimately will be on aldactone and bid furosemide.
--- NOTE | 2019-04-28 14:14 | Discharge Summary ---
Medical - DS: Prov Patient information: Note initiated : 04/28/19 at 2:08 pm Service Date, if different from initiated Date: [] Patient: Marilin Calvillo 89 y/o F admitted on 04/22/19 for shortness of breathe. Chief Complaint: [] Date of admission: 04/22/19 09:41 Discharge date: 04/30/19 Primary care physician: Rikki Maki Consults: 04/22/19 Consult to Physician [CONS] Stat Comment: Consulting Provider: Chan Denise Reason For Exam: Physician to Consult 04/22/19 09:48 Consult to Physician [CONS] Routine Comment: Consulting Provider: Jacobo Galvez Reason For Exam: Physician to Consult Medical - DS: Meds - Discharge Medications Prescriptions: Furosemide [Lasix] 20 mg PO BIDD #20 tab Spironolactone [Aldactone] 25 mg PO DAILY #30 tab Active and Home Medications: Home Medications flaxseed 1,000 mg capsule See Dose Instructions .ROUTE .MEDSUPPLY 07/09/15 [History Confirmed 04/22/19 Last Taken Unknown] coenzyme Q10 100 mg capsule 200 mg PO QDAY cap 08/13/15 [History Confirmed 04/22/19 Last Taken Unknown] cranberry extract 500 mg capsule 500 mg PO QAM cap 08/13/15 [History Confirmed 04/22/19 Last Taken Unknown] ascorbic acid (vitamin C) 500 mg tablet 1,000 mg PO BID tab 05/25/16 [History Confirmed 04/22/19 Last Taken Unknown] vitamin E mixed 400 unit capsule 400 unit PO BID cap 09/28/17 [History Confirmed 04/22/19 Last Taken Unknown] fexofenadine 180 mg tablet 180 mg PO QDAY 06/08/18 [History Confirmed 04/22/19 Last Taken Unknown] cinnamon bark 500 mg capsule See Dose Instructions .ROUTE .MEDSUPPLY 01/03/19 [History Confirmed 04/22/19 Last Taken Unknown] cyanocobalamin (vit B-12) 1,000 mcg tablet 1,000 mcg PO QDAY tab 01/03/19 [History Confirmed 04/22/19 Last Taken Unknown] gabapentin 300 mg capsule 300 mg PO TID 01/03/19 [History Confirmed 04/22/19 Last Taken Unknown] mineral oil enema 118 ml IA ONCE PRN 01/03/19 [History Confirmed 04/22/19 Last Taken Unknown] venlafaxine ER 75 mg capsule,extended release 24 hr 37.5 mg PO QDAY 01/03/19 [History Confirmed 04/22/19 Last Taken Unknown] furosemide 20 mg tablet 40 mg PO BID tab 02/20/19 [History Confirmed 04/22/19 Last Taken Unknown] levothyroxine 88 mcg tablet 88 mcg PO QDAY 02/20/19 [History Confirmed 04/22/19 Last Taken Unknown] ipratropium-albuterol 0.5 mg-3 mg(2.5 mg base)/3 mL nebulization soln 3 ml INHALATION QID 03/06/19 [History Confirmed 04/22/19 Last Taken Unknown] budesonide 0.5 mg/2 mL suspension for nebulization 2 ml INHALATION BID #2 ml 03/26/19 [Rx Confirmed 04/22/19 Last Taken Unknown] Vitamin D3 1,000 unit PO DAILY 04/22/19 [History Confirmed 04/22/19 Last Taken Unknown] Medical - DS: Hosp Hospital course: Mr. Calvillo is a 89 year old F Ms. Calvillo is a 89 year old F with history of chronic kidney disease/CHF who was brought in to [facility] ER from [facility] with increasing weakness, shortness of breath and increased oxygen requirement over the last few days. Patient has been gradually gaining weight with dependent edema. Patient also become more lethargic fatigue unable to perform activities of daily living. She has been doing remarkably dyspnea at rest. Initial workup in the ER was consistent with acute exacerbation of heart failure with pulmonary edema on chest imaging. Patient was profoundly hypoxic . hospitalist service was consulted. Patient is requiring 8 L to maintain sats over 90% and was started promptly on BiPAP At the time of evaluation patient is responding to commands but very fatigued and lethargic. She denies recent changes in medication, NSAID intake, high salt diet. She denies diarrhea dysuria, joint pain, rash, headache, photophobia or chest pain. 04/23-continuing to aggressively diuresis. Persistent anasarca but improved sinc e previous day. Tolerated noninvasive ventilation overnight. Currently off noninvasive ventilation on 3 L oxygen. Creatinine stable. Nephrology on board. Echocardiogram pending. Improved prognosis since previous day. Continue antibiotic coverage for Pseudomonas UTI. Await sensitivities. 04/24-patient doing well. On 3 L oxygen. Diuresing well. Weight down to 215 pounds from 231. Improving anasarca. Potassium 3.1 on replacement. Renal function at baseline. Nephrology on board. On antibiotic coverage for multidrug resistant Pseudomonas UTI/GPC bacteremia. Surveillance cultures pe nding. Continue vancomycin. No overnight events including telemetry events or concerns per staff. Ongoing wound care. 04/25-patient doing better. Diuresing well. Over 18 fluid pounds weight redu ction. Bicarbonate trending up secondary to contraction alkalosis. Start Diamox. Continue diuresis. Anticipate SNF transfer once clinically better. Continue PT OT. Improved blood pressures. Renal function stable. On antibiotic coverage for Pseudomonas UTI. Surveillance cultures negative so far. No overnight fever or chills or concerns per staff. No major telemetry events. 04/26- continues to diurese well. No overnight events. Transition to oral diuretics. Case discussed with Dr. Rikki Sanford who will follow her at the SNF. Anticipate discharge in the next 2-3 days with continued rehabilitation. At this time patient is extremely weak and unable to get out of bed to participate in physical therapy. Now on 2 L oxygen which is her baseline. Transfer to medical floor. Continue nutritional support/aggressive therapy. Continue antibiotic coverage for Pseudomonas UTI. Unclear if gram-positive cocci contaminant however surveillance cultures negative. Normal white count. Sodium up trending at 147. Start metolazone 04/27 Slept well. No overnight events. Leg edema improved per nursing. On 1 L nasal cannula. Occasional cough. No new complaints. 6/2 Poor sleep. Has cough but unable to produce sputum. On 1 L of oxygen with good saturations in the low to mid 90s. /3 Poor sleep. Otherwise no specific complaints. No overnight events. Dementia at baseline per discussion between nurse and family members. Patient's been stating she has been ready to for the past several years 04/30 Sleeping well until telemetry "woke her up". Otherwise no events or no new complaints. Stable for discharge. However patient high risk for readmission given her age comorbidities and general decline and dementia. Discharge diagnosis: Acute hypoxic respiratory failure decompensated diastolic heart failure con Secondary discharge diagnosis: Pseudomonas UTI resistant to quinolones anasarca chronic kidney disease rabia ctrolyte abnormalities anemia neuropathy hypothyroidism dementia anxiety - Time Spent with Patient Total time spent providing and/or coordinating discharge services: Greater than 30 minutes Medical - DS: Exam - Constitutional Vitals: Vital Signs Temp Pulse Pulse Resp BP Pulse Ox 04/28/19 13:08 71 20 04/28/19 11:43 97.6 F 20 148/66 90 04/28/19 07:55 72 18 93 04/28/19 07:00 98.5 F 20 134/66 93 04/28/19 04:00 75 18 128/55 92 04/28/19 00:25 97.6 F 75 18 124/55 95 04/27/19 20:00 97.5 F 70 18 128/61 93 04/27/19 19:50 86 24 H 97 04/27/19 15:47 97.6 F 72 20 136/54 93 Intake and Output 04/28/19 04/28/19 04/28/19 05:59 13:59 21:59 Intake Total 230 Output Total 3 3 Balance 227 -3 Intake: Oral 230 Output: # of times incontinent of urine 3 3 Other: Meal Breakfast Percent of Meal Consumed 0% Medical - DS: Data Labs on day of discharge: Labs from last 24 hours 04/28/19 04/28/19 04/28/19 04:15 04:15 04:15 ABG Methemoglobin 0.3 L VBG pH 7.49 H VBG pCO2 56.0 H VBG pO2 163 H VBG HCO3 41.6 H* VBG Total CO2 43.3 H* VBG O2 Saturation 91.9 H VBG Base Excess 16.2 H Carboxyhemoglobin 7.0 H Total Hemoglobin 9.9 L O2 Delivery Level Not Reportable Sodium 144 Potassium 3.8 Chloride 96 Carbon Dioxide 34 H Anion Gap 14.0 BUN 27 H Creatinine 2.0 H GFR Calculation 22 Glucose 84 Uric Acid 12.2 H Calcium 9.3 Phosphorus 2.8 Magnesium 2.0 Total Bilirubin 0.3 Direct Bilirubin < 0.2 GGT 16 AST 23 ALT 8 Alkaline Phosphatase 67 Lactate Dehydrogenase 295 H Total Protein 6.5 Albumin 3.4 Globulin 3.1 Albumin/Globulin Ratio 1.1 Triglycerides 173 H Random Vancomycin 19.3 Vancomycin Dose Not Reportable Vanco Last Dose Time Not Reportable Preliminary micro results at discharge 04/23/19 21:20 Blood Culture - Preliminary Blood 04/23/19 21:10 Blood Culture - Preliminary Blood 04/22/19 10:20 Blood Culture - Preliminary Blood Gram positive cocci Medical - DS: A/P - Patient/Caregiver Discharge Instructions Activity: as per physical therapy Diet: Renal/Consistent Carbs Additional Instructions: Follow-up with nephrology outpatient clinic Prescriptions: Furosemide [Lasix] 20 mg PO BIDD #20 tab Spironolactone [Aldactone] 25 mg PO DAILY #30 tab - Follow up Plan Follow up with: Rikki Maki MD [Primary Care Provider] - Antoni Busch MD [Physician] - Disposition: Xfer SNF Prognosis: Undetermined Rehab Potential: Fair I certify that the patient requires SNF services: Yes Overall status at discharge: patient is progressing back to baseline Medical - DS: Qual - VTE Deep Vein Thrombosis/Pulmonary Embolism Present on Admission: No
[2019-04-28] MEDS: SENNOSIDES/DOCUSATE SODIUM 1 TAB TABLET PO SCH (20:15)
[2019-04-29] MEDS: IPRATROPIUM/ALBUTEROL 3 ML AMPUL.NEB NEB SCH ×4 (00:32→18:49)
[2019-04-29 04:28] LABS: ABG Methemoglobin 0.3 % (0.4-1.5); Total Hemoglobin 9.3 gm/dL (12.0-15.0); VBG Base Excess 13.5 (-2.0-2.0); VBG HCO3 40.9 mmol/L (24.0-28.0); VBG Oxygen Saturation 92.8 % (40.0-70.0); VBG PCO2 72.6 mmHg (41.0-51.0); VBG PH 7.37 U (7.32-7.42); VBG PO2 75 mmHg (25-40); VBG Total CO2 43.2 mmol/L (25.0-29.0)
[2019-04-29] MEDS: acetaZOLAMIDE 250 MG TABLET PO SCH ×2 (05:28→12:46)
[2019-04-29] MEDS: 0.9 % SODIUM CHLORIDE 10 ML SYRINGE IV SCH ×3 (05:28→22:40)
[2019-04-29 05:31] LABS: ALT/SGPT 9 U/l (0-40); AST/SGOT 22 U/l (0-37); Albumin 3.4 gm/dL (3.2-5.2); Albumin/Globulin Ratio 1.3 (1.0-2.3); Alkaline Phosphatase 66 U/L (39-117); Bilirubin,Direct < 0.2 mg/dL (0.0-0.3); Bilirubin,Total 0.2 mg/dL (0.0-1.0); Blood Urea Nitrogen 25 mg/dl (8-23); Calcium 9.5 mg/dl (8.6-10.4); Carbon Dioxide 37 mmol/L (22-30); Chloride 100 mmol/L (96-108); Gamma Glutamyl Transpeptidase 14 U/L (5-36); Globulin 2.7 gm/dL (2.2-3.7); Glomerular Filtration Rate 23; Glucose 90 mg/dL (70-105); Lactate Dehydrogenase 253 U/L (94-250); Magnesium 2.1 mg/dL (1.6-2.5); Potassium 3.6 mmol/L (3.3-5.1); Sodium 147 mmol/L (133-145); Triglycerides 155 mg/dl (<150); Uric Acid 11.7 mg/dL (2.5-8.0)
--- NOTE | 2019-04-29 07:02 | Internal Med Progress Note ---
Medical - PN: Subj Patient information: Note initiated : 04/29/19 at 6:55 am Service Date, if different from initiated Date: [] Patient: Marilin Calvillo 89 y/o F admitted on 04/22/19 for shortness of breathe. Chief Complaint: [] Interval history: Ms. Calvillo is a 89 year old F with history of chronic kidney disease/CHF who was brought in to [facility] ER from [facility] with increasing weakness, shortness of breath and increased oxygen requirement over the last few days. Patient has been gradually gaining weight with dependent edema. Patient also become more lethargic fatigue unable to perform activities of daily living. She has been doing remarkably dyspnea at rest. Initial workup in the ER was consistent with acute exacerbation of heart failure with pulmonary edema on chest imaging. Patient was profoundly hypoxic . hospitalist service was consulted. Patient is requiring 8 L to maintain sats over 90% and was started promptly on BiPAP At the time of evaluation patient is responding to commands but very fatigued and lethargic. She denies recent changes in medication, NSAID intake, high salt diet. She denies diarrhea dysuria, joint pain, rash, headache, photophobia or chest pain. 04/23-continuing to aggressively diuresis. Persistent anasarca but improved since previous day. Tolerated noninvasive ventilation overnight. Currently off noninvasive ventilation on 3 L oxygen. Creatinine stable. Nephrology on board. Echocardiogram pending. Improved prognosis since previous day. Farhat nue antibiotic coverage for Pseudomonas UTI. Await sensitivities. 04/24-patient doing well. On 3 L oxygen. Diuresing well. Weight down to 215 pounds from 231. Improving anasarca. Potassium 3.1 on replacement. Renal function at baseline. Nephrology on board. On antibiotic coverage for multid rug resistant Pseudomonas UTI/GPC bacteremia. Surveillance cultures pending. Continue vancomycin. No overnight events including telemetry events or concerns per staff. Ongoing wound care. 04/25-patient doing better. Diuresing well. Over 18 fluid pounds weight reduction. Bicarbonate trending up secondary to contraction alkalosis. Start Diamox. Continue diuresis. Anticipate SNF transfer once clinically better. Continue PT OT. Improved blood pressures. Renal function stable. On antib iotic coverage for Pseudomonas UTI. Surveillance cultures negative so far. No overnight fever or chills or concerns per staff. No major telemetry events. 04/26- continues to diurese well. No overnight events. Transition to oral diuretics. Case discussed with Dr. Rikki Sanford who will follow her at the SNF. Anticipate discharge in the next 2-3 days with continued rehabilitation. At this time patient is extremely weak and unable to get out of bed to participate in physical therapy. Now on 2 L oxygen which is her baseline. Transfer to medical floor. Continue nutritional support/aggressive therapy. Continue antibiotic coverage for Pseudomonas UTI. Unclear if gram-positive cocci contaminant however surveillance cultures negative. Normal white count. Sodium up trending at 147. Start metolazone 04/27 Slept well. No overnight events. Leg edema improved per nursing. On 1 L nasal cannula. Occasional cough. No new complaints. 04/28 Poor sleep. Has cough but unable to produce sputum. On 1 L of oxygen with good saturations in the low to mid 90s. 04/29 Poor sleep. Otherwise no specific complaints. No overnight events. Dementia at baseline per discussion between nurse and family members. Patient's been stating she has been ready to for the past several years Review of Systems: denies headache/fever/chills/nausea/vomiting/chest or abdominal pain/dyspnea/diarrhea. Otherwise see above. - Constitutional Vitals: Vital Signs Temp Pulse Resp BP Pulse Ox 98.1 F 74 18 137/61 92 04/29/19 04:00 04/29/19 04:00 04/29/19 04:00 04/29/19 04:00 04/29/19 04:00 Period Temp Pulse Resp BP Sys/Palafox Pulse Ox Last 24 Hr 97.6 F-98.5 F 70-75 18-20 106-148/47-66 90-98 Intake and Output 04/28/19 04/29/19 04/29/19 21:59 05:59 13:59 Intake Total 200 105 Output Total 3 3 Balance 197 102 Weight 89.131 kg Intake & Output: Intake & Output 04/28/19 04/29/19 04/29/19 21:59 05:59 13:59 Intake Total 200 105 Output Total 3 3 Balance 197 102 Weight 89.131 kg Intake: Oral 200 105 Output: # of times incontinent of urine 3 3 Other: Urine Odor Normal Exam: General: Alert, Awake, No acute Distress Eyes/N/T: EOMI, Head/Neck: neck supple, CV: RRR, 3/6 SM, normal s1/s2 Pulm: Mild bibasilar Rales/rhonchi improving, no wheezing Abd: soft, nontender, +BS x4 Ext: no clubbing/cyanosis, trace b/l LE edema Neuro: Alert, no focal deficits, moves all extremities, Skin: warm/dry Medical - PN: Obj Da - Labs CBC & Chem 7: 04/27/19 04:10 04/29/19 03:45 Labs: Abnormal Lab Results 04/29/19 04/29/19 04/28/19 03:45 03:45 04:15 RBC Hgb Hct MPV Lymphocytes % Eosinophils % (Manual) ABG Methemoglobin 0.3 L 0.3 L VBG pH 7.49 H VBG pCO2 72.6 H* 56.0 H VBG pO2 75 H 163 H VBG HCO3 40.9 H* 41.6 H* VBG Total CO2 43.2 H* 43.3 H* VBG O2 Saturation 92.8 H 91.9 H VBG Base Excess 13.5 H 16.2 H Carboxyhemoglobin 1.7 H 7.0 H Total Hemoglobin 9.3 L 9.9 L Sodium 147 H Potassium Chloride Carbon Dioxide 37 H BUN 25 H Creatinine 1.9 H Uric Acid 11.7 H Lactate Dehydrogenase 253 H Triglycerides 155 H 04/28/19 04/27/19 04/27/19 04:15 07:51 04:10 RBC Hgb Hct MPV Lymphocytes % Eosinophils % (Manual) ABG Methemoglobin 0 L VBG pH 7.45 H VBG pCO2 71.4 H* VBG pO2 161 H VBG HCO3 48.0 H* VBG Total CO2 50.1 H* VBG O2 Saturation 95.1 H VBG Base Excess 20.9 H Carboxyhemoglobin 4.2 H Total Hemoglobin 9.6 L Sodium 146 H Potassium 2.9 L* Chloride 93 L Carbon Dioxide 34 H 44 H* BUN 27 H 25 H Creatinine 2.0 H 2.0 H Uric Acid 12.2 H 13.0 H Lactate Dehydrogenase 295 H Triglycerides 173 H 158 H 04/27/19 04:10 RBC 3.02 L Hgb 9.2 L Hct 29.2 L MPV 7.2 L Lymphocytes % 5 L Eosinophils % (Manual) 9 H ABG Methemoglobin VBG pH VBG pCO2 VBG pO2 VBG HCO3 VBG Total CO2 VBG O2 Saturation VBG Base Excess Carboxyhemoglobin Total Hemoglobin Sodium Potassium Chloride Carbon Dioxide BUN Creatinine Uric Acid Lactate Dehydrogenase Triglycerides Meds: Medications Acetaminophen (Tylenol) 650 mg PO Q4-6HP PRN PRN Reason: PAIN/FEVER > 101 Acetazolamide (Acetazolamide) 250 mg PO Q6 [facility] Stop: 05/01/19 12:00 Last Admin: 04/29/19 05:28 Dose: 250 mg Documented by: Albuterol/Ipratropium (Duoneb) 3 ml NEB Q6HRT [facility] Last Admin: 04/29/19 00:32 Dose: 3 ml Documented by: Budesonide (Pulmicort) 0.5 mg NEB Q12 [facility] Last Admin: 04/28/19 19:16 Dose: 0.5 mg Documented by: Cefepime HCl (Maxipime) 1 gm IV DAILY [facility]; Protocol Last Admin: 04/28/19 08:28 Dose: 1 gm Documented by: Docusate Sodium (Colace) 100 mg PO BID [facility] Last Admin: 04/28/19 20:15 Dose: Not Given Documented by: Fexofenadine HCl (Kallie) 180 mg PO QDAY [facility] Last Admin: 04/28/19 08:29 Dose: 180 mg Documented by: Gabapentin (Neurontin) 300 mg PO DAILY [facility] Last Admin: 04/28/19 08:28 Dose: 300 mg Documented by: Heparin Sodium (Porcine) (Heparin) 5,000 unit SQ Q12 [facility] Last Admin: 04/28/19 20:15 Dose: 5,000 unit Documented by: Magnesium Sulfate (Magnesium Sulfate) 2 gm in 50 mls @ 50 mls/hr IV UD PRN PRN Reason: MG = or < 1.7 Acetaminophen (Ofirmev) 1,000 mg in 100 mls @ 200 mls/hr IV Q6HP PRN PRN Reason: PAIN/FEVER > 101 Levothyroxine Sodium (Synthroid) 88 mcg PO QAMAC [facility] Last Admin: 04/28/19 07:49 Dose: 88 mcg Documented by: Magnesium Hydroxide (Milk Of Magnesia) 30 ml PO HSP PRN PRN Reason: Constipation Mineral Oil (Mineral Oil Enema) [address] DAILYP PRN PRN Reason: Constipation Ondansetron HCl (Zofran) 4 mg IV Q4-6HP PRN PRN Reason: Nausea And Vomiting Potassium Chloride (Kdur) 40 meq PO DAILYP PRN PRN Reason: K+ < 3.5 Last Admin: 04/27/19 06:12 Dose: 40 meq Documented by: Potassium Chloride (Potassium Chloride) 20 meq PO BIDCC [facility] Last Admin: 04/28/19 17:54 Dose: 20 meq Documented by: Senna/Docusate Sodium (Senna Plus Tablet) 2 tab PO HS [facility] Last Admin: 04/28/19 20:15 Dose: Not Given Documented by: Sodium Chloride (Saline Flush) 10 ml IV Q8 [facility] Last Admin: 04/29/19 05:28 Dose: 10 ml Documented by: Spironolactone (Aldactone) 25 mg PO DAILY [facility] Stop: 05/01/19 08:59 Last Admin: 04/28/19 08:29 Dose: 25 mg Documented by: Venlafaxine HCl (Effexor Xr) 37.5 mg PO DAILY [facility] Last Admin: 04/28/19 08:29 Dose: 37.5 mg Documented by: - ABG Interpretation ABG results: 04/27/19 04/28/19 04/29/19 07:51 04:15 03:45 ABG Methemoglobin 0 L 0.3 L 0.3 L VBG pH 7.45 H 7.49 H 7.37 VBG pCO2 71.4 H* 56.0 H 72.6 H* VBG pO2 161 H 163 H 75 H VBG HCO3 48.0 H* 41.6 H* 40.9 H* VBG Total CO2 50.1 H* 43.3 H* 43.2 H* VBG O2 Saturation 95.1 H 91.9 H 92.8 H VBG Base Excess 20.9 H 16.2 H 13.5 H Medical - PN: A/P - Time Spent With Patient Total time spent is greater than 50% in coordination of care (as documented) at patient's floor/unit and/or counseling patient: - Narrative A/P Narrative: A: *Acute hypoxic respiratory failure: -Off noninvasive ventilation -now on 1 L oxygen with sats mid 90's, can likely be on room air, will trial *Acute decompensated heart failure with preserved EF: resolved -Repeat echo 67% EF, mild AI -CT chest unremarkable for atelectasis and small patchy infiltrate lower lobes, no interstitial edema *Contraction alkalosis: Improved -unable to get accurate i/o's given incontinence *Gram-positive cocci bacteremia: 11/30 bottles and coag neg staph, determined contaminant *Complicated Pseudomonas (resistant to quinolones) UTI: *Anasarca secondary to above: -greatly improved with diuresis. *Chronic kidney disease stage III B/IV: managed by nephrology *Hypokalemia: resolved *Hypernatremia: *Anemia, chronic: *Neuropathy: continue home dose gabapentin *hypothyroidism: continue home dose thyroxine *Anxiety disorder: continue Effexor *Dementia: Nurse clarified baseline with daughter Plan: -Diamox per nephro, aldactone -Nephrology following -Lasix held for now -Wean oxygen as tolerated -Continue cefepime -PT OT/nutrition support -Anticipate SNF transfer, -ppx: heparin DNR Medical - PN: Qual - VTE Deep Vein Thrombosis/Pulmonary Embolism Present on Admission: No
[2019-04-29] MEDS: BUDESONIDE 0.5 MG/2 ML AMPUL.NEB NEB SCH ×2 (07:47→19:00)
[2019-04-29] MEDS: SPIRONOLACTONE 25 MG TABLET PO SCH (08:54)
[2019-04-29] MEDS: LEVOTHYROXINE 88 MCG TABLET PO SCH (08:54)
[2019-04-29] MEDS: FEXOFENADINE 180 MG TABLET PO SCH (08:54)
[2019-04-29] MEDS: VENLAFAXINE 37.5 MG TAB.ER.24H PO SCH (08:54)
[2019-04-29] MEDS: GABAPENTIN 300 MG CAPSULE PO SCH (08:55)
[2019-04-29] MEDS: HEPARIN 5,000 UNIT/ML VIAL SQ SCH ×2 (08:55→22:40)
[2019-04-29] MEDS: CEFEPIME 1 GM VIAL IV SCH (08:55)
[2019-04-29] MEDS: DOCUSATE SODIUM 100 MG CAPSULE PO SCH ×2 (08:55→22:40)
[2019-04-29] MEDS: POTASSIUM CHLORIDE 20 MEQ/15 ML ML PO SCH (08:55)
[2019-04-29] MEDS ORDERED: VANCOMYCIN 500 MG in 0.9 % SODIUM CHLORIDE 100 ML IV SCH (09:00)
[2019-04-29] MEDS: DEXTROSE 5% IN WATER 250 ML IV SCH ×2 (09:16→12:47)
--- NOTE | 2019-04-29 12:12 | Nephrology Progress Note ---
Subjective Patient information: Note initiated : 04/29/19 at 12:10 pm Service Date, if different from initiated Date: [] Patient: Marilin Calvillo 89 y/o F admitted on 04/22/19 for shortness of breathe. Chief Complaint: [] Principal diagnosis: Acute on chronic respiratory failure with hypoxemia Interval history: Seems more alert this AM Pertinent ROS: Nothing new Objective - Vital Signs Vital signs: Vital Signs Temp Pulse Pulse Resp BP BP Pulse Ox 04/29/19 07:56 70 20 93 04/29/19 07:31 97.8 F 70 18 150/62 95 04/29/19 04:00 98.1 F 74 18 137/61 92 04/28/19 23:27 97.7 F 70 20 106/47 93 04/28/19 20:00 98.2 F 75 18 129/63 98 04/28/19 19:18 74 20 04/28/19 16:00 97.8 F 20 109/50 95 04/28/19 13:08 71 20 Intake and Output 04/28/19 04/29/19 04/29/19 21:59 05:59 13:59 Intake Total 200 105 220 Output Total 3 3 1 Balance 197 102 219 Intake: Oral 200 105 220 Output: # of times incontinent of urine 3 3 1 Other: Meal Nourishment/Supplement Percent of Meal Consumed 100% Feeding Ability Total Assistance Urine Appearance Clear Urine Color Pale Urine Odor Normal Normal Weight 196 lb 8 oz Intake & Output: Intake & Output 04/28/19 04/29/19 04/29/19 21:59 05:59 13:59 Intake Total 200 105 220 Output Total 3 3 1 Balance 197 102 219 Weight 196 lb 8 oz Intake: Oral 200 105 220 Output: # of times incontinent of urine 3 3 1 Other: Meal Nourishment/Supplement Percent of Meal Consumed 100% Feeding Ability Total Assistance Urine Appearance Clear Urine Color Pale Urine Odor Normal Normal - General Appearance General appearance: obese, frail EENT: ATNC, PERRL, mucous membranes dry Neck: JVD, no carotid bruit, supple Respiratory: kyphosis, rhonchi Cardiology: no murmurs, edema (Trace to 1+) Gastrointestinal: normoactive bowel sounds, no tenderness, no guarding Integumentary: no rash, ecchymotic Neurologic: no focal deficit, alert and oriented x3, reflexes 2+ and symmetric Musculoskeletal: no cyanosis, no clubbing Psychiatric: mood/affect appropriate - Lab 04/27/19 04:10 04/29/19 03:45 Most recent lab results Calcium 9.5 mg/dl (8.6-10.4) 04/29/19 03:45 Phosphorus 3.0 mg/dL (2.7-4.5) 04/29/19 03:45 Magnesium 2.1 mg/dL (1.6-2.5) 04/29/19 03:45 Assessment and Plan (1) Acute on chronic renal failure Stable. Underlying etiology said to be MARLO (NSAIDs) Status: Acute Priority: Medium Comment: Suspect prerenal azotemia due to diuresis and underlying CHF Qualifiers: Acute renal failure type: with other specified pathological lesion Chronic kidney disease stage: stage 4 (severe) Qualified Code(s): N17.8 - Other acute kidney failure; N18.4 - Chronic kidney disease, stage 4 (severe) (2) Heart failure, diastolic, with acute decompensation Euvolemic or on the dry side Adjusting diuretics pLVEF on prior echo CT suggests pulmonary HTN Status: Acute (3) Acute respiratory failure Seems improved Reched the limit of diuresis Lethargic amd body habitus contribute to poor pulmonary mechanics Status: Chronic Priority: Medium Comment: Inproved with diuresis but developing a contraction alkalosis which will limit further diuresis. Qualifiers: Respiratory failure complication: hypoxia and hypercapnia Qualified Code(s): J96.01 - Acute respiratory failure with hypoxia; J96.02 - Acute respiratory failure with hypercapnia (4) CKD (chronic kidney disease) stage 4, GFR 15-29 ml/min Stable, Dr Way's note suggest MARLO from NSAIDs Stable GFR Not a dialysis candidate in my opinion Status: Chronic (5) Metabolic alkalosis with respiratory acidosis Stop lasix and thiazide Continue po KCl Use aldactone to prevent further k loss Recheck VBG on Monday Improving on paper Continue diamox and spironolactone Status: Acute Priority: High (6) Hypokalemia, excessive renal losses Stop lasix and thiazides Correct metabolic alkalosis with diamox Po replacement Add aldactone Monitor daily Status: Acute Priority: Medium (7) Eosinophil count raised Monitor. No rash of fever or ARF to suggest AIN. Finish course for UTI Status: Acute - Narrative A/P Narrative: 1. Continue to monitor GFR, K and CO2 2. Restart Lasix and continue aldactone 3. Stop acetazolamide 4. Will follow up in renal clinic post discharge 6 Rx changes as above today 7. Ultimately will be on aldactone and bid furosemide.
[2019-04-29 13:59] LABS: Sodium 145 mmol/L (133-145)
[2019-04-29] MEDS: MUPIROCIN OINT 2% 22GM NARES SCH (22:20)
[2019-04-29] MEDS: SENNOSIDES/DOCUSATE SODIUM 1 TAB TABLET PO SCH (22:40)
[2019-04-30] MEDS: IPRATROPIUM/ALBUTEROL 3 ML AMPUL.NEB NEB SCH ×2 (01:03→07:35)
[2019-04-30 05:50] LABS: Blood Urea Nitrogen 25 mg/dl (8-23); Calcium 9.3 mg/dl (8.6-10.4); Carbon Dioxide 33 mmol/L (22-30); Chloride 100 mmol/L (96-108); Glomerular Filtration Rate 22; Glucose 81 mg/dL (70-105); Potassium 3.2 mmol/L (3.3-5.1); Sodium 145 mmol/L (133-145)
[2019-04-30] MEDS: FUROSEMIDE 20 MG TABLET PO SCH ×2 (06:11→08:28)
[2019-04-30] MEDS: 0.9 % SODIUM CHLORIDE 10 ML SYRINGE IV SCH (06:12)
[2019-04-30] MEDS: LEVOTHYROXINE 88 MCG TABLET PO SCH (06:50)
[2019-04-30] MEDS ORDERED: POTASSIUM CHLORIDE 20 MEQ TABLET PO ONE (06:55)
[2019-04-30] MEDS: BUDESONIDE 0.5 MG/2 ML AMPUL.NEB NEB SCH (07:35)
--- NOTE | 2019-04-30 07:41 | Internal Med Progress Note ---
Medical - PN: Subj Patient information: Note initiated : 04/30/19 at 7:38 am Service Date, if different from initiated Date: [] Patient: Marilin Calvillo 89 y/o F admitted on 04/22/19 for shortness of breathe. Chief Complaint: [] Interval history: Ms. Calvillo is a 89 year old F with history of chronic kidney disease/CHF who was brought in to [facility] ER from [facility] with increasing weakness, shortness of breath and increased oxygen requirement over the last few days. Patient has been gradually gaining weight with dependent edema. Patient also become more lethargic fatigue unable to perform activities of daily living. She has been doing remarkably dyspnea at rest. Initial workup in the ER was consistent with acute exacerbation of heart failure with pulmonary edema on chest imaging. Patient was profoundly hypoxic . hospitalist service was consulted. Patient is requiring 8 L to maintain sats over 90% and was started promptly on BiPAP At the time of evaluation patient is responding to commands but very fatigued and lethargic. She denies recent changes in medication, NSAID intake, high salt diet. She denies diarrhea dysuria, joint pain, rash, headache, photophobia or chest pain. 04/23-continuing to aggressively diuresis. Persistent anasarca but improved since previous day. Tolerated noninvasive ventilation overnight. Currently off noninvasive ventilation on 3 L oxygen. Creatinine stable. Nephrology on board. Echocardiogram pending. Improved prognosis since previous day. Farhat nue antibiotic coverage for Pseudomonas UTI. Await sensitivities. 04/24-patient doing well. On 3 L oxygen. Diuresing well. Weight down to 215 pounds from 231. Improving anasarca. Potassium 3.1 on replacement. Renal function at baseline. Nephrology on board. On antibiotic coverage for multid rug resistant Pseudomonas UTI/GPC bacteremia. Surveillance cultures pending. Continue vancomycin. No overnight events including telemetry events or concerns per staff. Ongoing wound care. 04/25-patient doing better. Diuresing well. Over 18 fluid pounds weight reduction. Bicarbonate trending up secondary to contraction alkalosis. Start Diamox. Continue diuresis. Anticipate SNF transfer once clinically better. Continue PT OT. Improved blood pressures. Renal function stable. On antib iotic coverage for Pseudomonas UTI. Surveillance cultures negative so far. No overnight fever or chills or concerns per staff. No major telemetry events. 04/26- continues to diurese well. No overnight events. Transition to oral diuretics. Case discussed with Dr. Rikki Sanford who will follow her at the SNF. Anticipate discharge in the next 2-3 days with continued rehabilitation. At this time patient is extremely weak and unable to get out of bed to participate in physical therapy. Now on 2 L oxygen which is her baseline. Transfer to medical floor. Continue nutritional support/aggressive therapy. Continue antibiotic coverage for Pseudomonas UTI. Unclear if gram-positive cocci contaminant however surveillance cultures negative. Normal white count. Sodium up trending at 147. Start metolazone 04/27 Slept well. No overnight events. Leg edema improved per nursing. On 1 L nasal cannula. Occasional cough. No new complaints. 04/28 Poor sleep. Has cough but unable to produce sputum. On 1 L of oxygen with good saturations in the low to mid 90s. 04/29 Poor sleep. Otherwise no specific complaints. No overnight events. Dementia at baseline per discussion between nurse and family members. Patient's been stating she has been ready to for the past several years 04/30 Sleeping well until telemetry "woke her up". Otherwise no events or no new complaints. Review of Systems: denies headache/fever/chills/nausea/vomiting/chest or abdominal pain/dyspnea/diarrhea. Otherwise see above. - Constitutional Vitals: Vital Signs Temp Pulse Resp BP Pulse Ox 97.8 F 73 22 136/60 96 04/30/19 03:15 04/30/19 03:15 04/30/19 03:15 04/30/19 03:15 04/30/19 03:15 Period Temp Pulse Resp BP Sys/Palafox Pulse Ox Last 24 Hr 97.4 F-98.5 F 69-74 18-24 128-140/56-78 91-96 Intake and Output 04/29/19 04/30/19 04/30/19 21:59 05:59 13:59 Intake Total 100 300 Output Total 1 4 1 Balance 99 296 -1 Weight 87.997 kg Intake & Output: Intake & Output 04/29/19 04/30/19 04/30/19 21:59 05:59 13:59 Intake Total 100 300 Output Total 1 4 1 Balance 99 296 -1 Weight 87.997 kg Intake: Oral 100 300 Output: # of times incontinent of urine 1 4 1 Other: Meal Dinner Percent of Meal Consumed 25% Feeding Ability Total Assistance Urine Color Bright Yellow Bright Yellow Bright Yellow Urine Odor Foul Foul Foul Exam: General: Alert, Awake, No acute Distress Eyes/N/T: EOMI, Head/Neck: neck supple, CV: RRR, 3/6 SM, normal s1/s2 Pulm: Mild bibasilar Rales/rhonchi improved, no wheezing Abd: soft, nontender, +BS x4 Ext: no clubbing/cyanosis, trace b/l LE edema Neuro: Alert, no focal deficits, moves all extremities, Skin: warm/dry Medical - PN: Obj Da - Labs CBC & Chem 7: 04/27/19 04:10 04/30/19 03:47 Labs: Abnormal Lab Results 04/30/19 04/29/19 04/29/19 03:47 03:45 03:45 ABG Methemoglobin 0.3 L VBG pH VBG pCO2 72.6 H* VBG pO2 75 H VBG HCO3 40.9 H* VBG Total CO2 43.2 H* VBG O2 Saturation 92.8 H VBG Base Excess 13.5 H Carboxyhemoglobin 1.7 H Total Hemoglobin 9.3 L Sodium 147 H Potassium 3.2 L Carbon Dioxide 33 H 37 H BUN 25 H 25 H Creatinine 2.0 H 1.9 H Uric Acid 11.7 H Lactate Dehydrogenase 253 H Triglycerides 155 H 04/28/19 04/28/19 04/27/19 04:15 04:15 07:51 ABG Methemoglobin 0.3 L 0 L VBG pH 7.49 H 7.45 H VBG pCO2 56.0 H 71.4 H* VBG pO2 163 H 161 H VBG HCO3 41.6 H* 48.0 H* VBG Total CO2 43.3 H* 50.1 H* VBG O2 Saturation 91.9 H 95.1 H VBG Base Excess 16.2 H 20.9 H Carboxyhemoglobin 7.0 H 4.2 H Total Hemoglobin 9.9 L 9.6 L Sodium Potassium Carbon Dioxide 34 H BUN 27 H Creatinine 2.0 H Uric Acid 12.2 H Lactate Dehydrogenase 295 H Triglycerides 173 H Meds: Medications Acetaminophen (Tylenol) 650 mg PO Q4-6HP PRN PRN Reason: PAIN/FEVER > 101 Last Admin: 04/29/19 08:54 Dose: 650 mg Documented by: Albuterol/Ipratropium (Duoneb) 3 ml NEB Q6HRT [facility] Last Admin: 04/30/19 07:35 Dose: 3 ml Documented by: Budesonide (Pulmicort) 0.5 mg NEB Q12 [facility] Last Admin: 04/30/19 07:35 Dose: 0.5 mg Documented by: Cefepime HCl (Maxipime) 1 gm IV DAILY [facility]; Protocol Last Admin: 04/29/19 08:55 Dose: 1 gm Documented by: Docusate Sodium (Colace) 100 mg PO BID [facility] Last Admin: 04/29/19 22:40 Dose: 100 mg Documented by: Fexofenadine HCl (Kallie) 180 mg PO QDAY [facility] Last Admin: 04/29/19 08:54 Dose: 180 mg Documented by: Furosemide (Lasix) 20 mg PO BIDD [facility] Last Admin: 04/30/19 06:11 Dose: 20 mg Documented by: Gabapentin (Neurontin) 300 mg PO DAILY [facility] Last Admin: 04/29/19 08:55 Dose: 300 mg Documented by: Heparin Sodium (Porcine) (Heparin) 5,000 unit SQ Q12 [facility] Last Admin: 04/29/19 22:40 Dose: 5,000 unit Documented by: Magnesium Sulfate (Magnesium Sulfate) 2 gm in 50 mls @ 50 mls/hr IV UD PRN PRN Reason: MG = or < 1.7 Acetaminophen (Ofirmev) 1,000 mg in 100 mls @ 200 mls/hr IV Q6HP PRN PRN Reason: PAIN/FEVER > 101 Levothyroxine Sodium (Synthroid) 88 mcg PO QAMAC [facility] Last Admin: 04/30/19 06:50 Dose: 88 mcg Documented by: Magnesium Hydroxide (Milk Of Magnesia) 30 ml PO HSP PRN PRN Reason: Constipation Mineral Oil (Mineral Oil Enema) 1 dose MT DAILYP PRN PRN Reason: Constipation Mupirocin (Bactroban Oint 2%) 1 dose NARES BID [facility] Last Admin: 04/29/19 22:20 Dose: 1 dose Documented by: Ondansetron HCl (Zofran) 4 mg IV Q4-6HP PRN PRN Reason: Nausea And Vomiting Potassium Chloride (Kdur) 40 meq PO DAILYP PRN PRN Reason: K+ < 3.5 Last Admin: 04/27/19 06:12 Dose: 40 meq Documented by: Senna/Docusate Sodium (Senna Plus Tablet) 2 tab PO HS [facility] Last Admin: 04/29/19 22:40 Dose: 2 tab Documented by: Sodium Chloride (Saline Flush) 10 ml IV Q8 [facility] Last Admin: 04/30/19 06:12 Dose: 10 ml Documented by: Spironolactone (Aldactone) 25 mg PO DAILY [facility] Stop: 05/01/19 08:59 Last Admin: 04/29/19 08:54 Dose: 25 mg Documented by: Venlafaxine HCl (Effexor Xr) 37.5 mg PO DAILY [facility] Last Admin: 04/29/19 08:54 Dose: 37.5 mg Documented by: - ABG Interpretation ABG results: 04/27/19 04/28/19 04/29/19 07:51 04:15 03:45 ABG Methemoglobin 0 L 0.3 L 0.3 L VBG pH 7.45 H 7.49 H 7.37 VBG pCO2 71.4 H* 56.0 H 72.6 H* VBG pO2 161 H 163 H 75 H VBG HCO3 48.0 H* 41.6 H* 40.9 H* VBG Total CO2 50.1 H* 43.3 H* 43.2 H* VBG O2 Saturation 95.1 H 91.9 H 92.8 H VBG Base Excess 20.9 H 16.2 H 13.5 H Medical - PN: A/P - Time Spent With Patient Total time spent is greater than 50% in coordination of care (as documented) at patient's floor/unit and/or counseling patient: - Narrative A/P Narrative: A: *Acute hypoxic respiratory failure: -Off noninvasive ventilation -now on 1 L oxygen with sats mid 90's, can likely be on room air, will trial *Acute decompensated heart failure with preserved EF: resolved -Repeat echo 67% EF, mild AI -CT chest unremarkable for atelectasis and small patchy infiltrate lower lobes, no interstitial edema *Contraction alkalosis: Improved -unable to get accurate i/o's given incontinence *Gram-positive cocci bacteremia: / bottles and coag neg staph, determined contaminant *Complicated Pseudomonas (resistant to quinolones) UTI: *Anasarca secondary to above: -greatly improved with diuresis. 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
[2019-04-30] MEDS: VENLAFAXINE 37.5 MG TAB.ER.24H PO SCH (08:27)
[2019-04-30] MEDS: FEXOFENADINE 180 MG TABLET PO SCH (08:32)
[2019-04-30] MEDS: CEFEPIME 1 GM VIAL IV SCH (09:26)
[2019-04-30] MEDS: DOCUSATE SODIUM 100 MG CAPSULE PO SCH (09:27)
[2019-04-30] MEDS: SPIRONOLACTONE 25 MG TABLET PO SCH (09:27)
[2019-04-30] MEDS: GABAPENTIN 300 MG CAPSULE PO SCH (09:27)
[2019-04-30] MEDS: HEPARIN 5,000 UNIT/ML VIAL SQ SCH (09:27)
[2019-04-30] MEDS: MUPIROCIN OINT 2% 22GM NARES SCH (09:27)
== END 2019-04-30 11:23 | DRG 291 ==
LOC: ED 05:46 → ICU 09:41 → MEDSUR 04-26 12:27
PROVIDERS: ADMIT Internal Medicine; ATTEND Internal Medicine